=== PATIENT | female | born 1975 | race Caucasian/White ===

== ENCOUNTER 2023-06-07 12:23 | Outpatient (OUT) | payer OTHER, BC, SELFPAY ==
[2023-06-07 13:46] LABS: Free T4 0.76 ng/dL (0.76-1.46)
[2023-06-07 14:04] LABS: Free T3 2.07 pg/mL (2.18-3.98)
== END 2023-06-07 12:24 | disposition home or self-care (01) ==
PROVIDERS: PCP Family Medicine; Visit Provider Family Medicine
DX: R79.89 Other specified abnormal findings of blood chemistry (principal)
CPT/HCPCS: 36415; 84439; 84481

== ENCOUNTER 2023-08-31 07:25 | Outpatient (OUT) | payer OTHER, BC, SELFPAY ==
[2023-08-31 11:19] LABS: Free T3 1.86 pg/mL (2.18-3.98); Thyroid Stimulating Hormone 3.996 uIU/mL (0.358-3.740)
[2023-08-31 11:26] LABS: Free T4 0.84 ng/dL (0.76-1.46)
== END 2023-08-31 07:26 | disposition home or self-care (01) ==
PROVIDERS: PCP Family Medicine; Visit Provider Family Medicine
DX: R53.83 Other fatigue (principal)
CPT/HCPCS: 36415; 82728; 83540; 83550; 84439; 84443; 84481

== ENCOUNTER 2023-12-05 16:38 | Outpatient (OUT) | payer OTHER, BC, SELFPAY ==
[2023-12-05 18:06] LABS: Free T4 0.93 ng/dL (0.76-1.46)
[2023-12-05 18:11] LABS: Free T3 2.19 pg/mL (2.18-3.98); Thyroid Stimulating Hormone 5.172 uIU/mL (0.358-3.740)
== END 2023-12-05 16:39 | disposition home or self-care (01) ==
LOC: LAB 16:44
PROVIDERS: PCP Family Medicine; Visit Provider Family Medicine
DX: E03.9 Hypothyroidism, unspecified (principal)
CPT/HCPCS: 36415; 84439; 84443; 84481

== ENCOUNTER 2024-02-20 09:58 | Outpatient (OUT) | payer OTHER, BC, SELFPAY ==
--- OUTSIDE RECORDS SUMMARY | 2024-02-20 10:21 | XMS_ITS | CCD ---
Author Organization [facility] Care Team Providers Care Health And Safety Consultant Name Role Phone Rober, Gonzales Primary Care Provider Rober, Gonzales Unavailable Rober, DO Gonzales M. Primary Care Provider Rober, DO Gonzales M. Attending Provider Rober, DO Gonzales M. Primary Care Provider Rinkes, DO Naomie Attending Provider Rober, DO Gonzales M. Primary Care Provider Community, Outreach Attending Provider [phone] Community, Outreach Admitting Unavailable Community, Outreach Attending Unavailable Rober, Gonzales M. Primary Care Unavailable Rinkes, Naomie Admitting Unavailable Rinkes, Naomie Attending Unavailable Rober, Gonzales M. Primary Care Unavailable Rinkes, Naomie Admitting Unavailable Rinkes, Naomie Attending Unavailable Rober, Gonzales M. Primary Care Unavailable Community, Outreach Admitting Unavailable Community, Outreach Attending Unavailable Rober, Gonzales M. Primary Care Unavailable SELF, SELF Referring Unavailable NON-PATIENT [facility] Attending Jahaira muhammad ROBER, GONZALES Primary Care Unavailable Medications Current Medications Medication Drug Class(es) Dates Sig (Normalized) Sig (Original) Aspir-81 81 MG (12 sources) take 1 tablet by mouth once daily Aspir-81 81 MG 1 tablet Orally Once a day Active Calcium Citrate (7 sources) Citracal + D 1 t ab once daily Active Lactobacillus Combination No.4 (Probiotic) 3 billion cell Capsule (5 sources) Start: 07-02-2017 take 3 capsules by mouth once daily Lactobacillus Combination No.4 (Probiotic) 3 billion cell Capsule Active 1.5 MMU CELLS PO Daily July 02, 2017 12:00am levothyroxine sodium 0.05 mg oral tablet (5 sources) l-Thyroxine Start: 06-13-2023 take 1 tablet by mouth once daily in the morning Levothyroxine Sodium 50 MCG 1 tablet in the morning on an empty stomach Orally Once a day for 90 days Jun, Active Start: 06-13-2023 take 1 tablet by raisa th once daily in the morning Levothyroxine Sodium 50 MCG 1 tablet in the morning on an empty stomach Orally Once a day for 90 days Jun, Active Start: 06-13-2023 take 1 tablet by raisa th once daily in the morning Levothyroxine Sodium 25 MCG 1 tablet in the morning on an empty stomach Orally Once a day for 90 days Jun, Active omeprazole 40 mg delayed release oral capsule (17 sources) Proton Pump Inhibitor Start: 07-02-2017 take 40 mg by mouth once daily Omeprazole Active 40 MG PO Daily July 02, 2017 12:00am take 1 capsule by mouth once yong ly PriLOSEC 40 mg 1 capsule Orally once daily for 90 days Active ondansetron 4 mg oral tablet (5 sources) Serotonin-3 Receptor Antagonist Start: 07-03-2017 take 1 tablet by mouth every eight hours Ondansetron Hcl (Zofran) 4 mg tablet Active 4 MG PO Q8H July 03, 2017 11:06am PARoxetine hydrochloride 20 mg oral tablet (5 sources) Serotonin Reuptake Inhibitor Start: 07-02-2017 take 20 mg by mouth once daily Paroxetine Hcl Active 20 MG PO Daily July 02, 2017 12:00am phentermine hydrochloride 37.5 mg oral tablet (5 sources) Sympathomimetic Amine Anorectic take 1 tablet by mouth once daily before breakfast Adipex-P 37.5 MG 1 tablet before breakfast Orally Once a day Active Probiotic (12 sources) Probiotic Daily Active Completed/Discontinued Medications Medication Drug Class(es) Dates Sig (Normalized) Sig (Original) losartan potassium 25 mg oral tablet (20 sources) Angiotensin 2 Receptor Sreedhar Start: 07-02-2017 End: 07-02-2017 take 90 mg by mouth once daily Losartan Discontinued 90 MG PO Daily July 02, 2017 12:00am July 02, 2017 10:12am Start: 08-30-2015 take 1 tablet by raisa th every twenty-four hours Losartan Potassium 50 MG 1 tablet Orally Once a day for 90 day(s) Aug, Active SUMAtriptan 50 mg oral tablet (12 sources) Serotonin-1b and Serotonin-1d Receptor Agonist Start: 12-01-2011 SUMAtriptan Succinat e 50 MG 1 tablet Orally take at the onset of FONSECA - february repeat in 30 minutes if no improvement for 30 days PRN Nov, Not-Taking/PRN Problems Problem Classification Problem Date Documented Da te Episodic/Chronic Abdominal pain (12 sources) Epigastric pain; Translations: [Epigastric pain] Episodic Administrative/social admission (5 sources) Patient encounter status; Translations: [Other specified counseling] 07-02-2017 Episodic Conditions associated with dizziness or vertigo (5 sources) Vertigo; Translations: [Dizziness and giddiness] 07-02-2017 Episodic Deficiency and other anemia (5 sources) Microcytic anemia; Translations: [Iron deficiency anemia, unspecified] Episodic Deficiency and other anemia (1 source) Iron deficiency anemia, unspecified Episodic Diabetes mellitus without complication (13 sources) Impaired fasting glycemia; Translations: [Impaired fasting glucose] Onset: 2 Resolved: 2 Episodic Disorders of lipid metabolism (5 sources) Hyperlipidemia; Translations: [Hyperlipidemia, unspecified] 07-02-2017 Chronic Esophageal disorders (20 sources) Gastroesophageal reflux disease; Translations: [Gastro-esophageal reflux disease without esophagitis] 07-02-2017 Chronic Essential hypertension (17 sources) Essential hypertension; Translations: [Essential (primary) hypertension] 07-02-2017 Chronic Fluid and electrolyte disorders (5 sources) Hyponatremia; Translations: [Hypo-osmolality and hyponatremia] 07-02-2017 Episodic Genitourinary symptoms and ill-defined conditions (1 source) Unspecified urinary incontinence; Translations: [Unspecified urinary incontinence] Onset: 3 Chronic Headache; including migraine (12 sources) Migraine with aura; Translations: [Migraine with aura, not intractable, without status migrainosus] Chronic Malaise and fatigue (1 source) Other fatigue Episodic Mood disorders (5 sources) Depressive disorder; Translations: [Depression] 07-02-2017 Chronic Nutritional deficiencies (12 sources) Vitamin D deficiency; Translations: [Vitamin D deficiency, unspecified] Chronic Other connective tissue disease (5 sources) Neurological deficit; Translations: [Other symptoms and signs involving the nervous system] 07-02-2017 Episodic Other gastrointestinal disorders (12 sources) Constipation alternates with diarrhea; Translations: [Other specified symptoms and signs involving the digestive system and abdomen] Episodic Other gastrointestinal disorders (12 sources) Diarrhea; Translations: [Diarrhea, unspecified] Episodic Other nutritional; endocrine; and metabolic disorders (12 sources) Body mass index 40+ - severely obese; Translations: [Body mass index (BMI) 40.0-44.9, adult] Chronic Other screening for suspected conditions (not mental disorders or infectious disease) (2 sources) Encounter for screening for malignant neoplasm of colon; Translations: [Other specified abnormal findings of blood chemistry] Onset: 2 Resolved: 2 Episodic Other upper respiratory disease (12 sources) Breath smells unpleasant; Translations: [Halitosis] Episodic Other upper respiratory infections (12 sources) Inflammatory disorder of upper respiratory tract; Translations: [Chronic sinusitis, unspecified] Chronic Thyroid disorders (7 sources) Acquired hypothyroidism; Translations: [Hypothyroidism, unspecified] Chronic Unclassified (1 source) Patient encounter status; Translations: [Encounter for screening mammogram for breast cancer] Unclassified (1 source) Encounter for screening mammogram for malignant neoplasm of breast; Translations: [Encounter for screening mammogram for malignant neoplasm of breast] Onset: 3 Results Test Name Value Interpretation Reference Range Facility 25 0H VITAMIN D LEVELon 01-06 25 0H VITAMIN D LEVEL 78.3 NG/ML Normal [facility] Comment on above: Result Comment: DEFICIENT <20 NG/ML INSUFFICIENT 20-<30 NG/ML SUFFICIENT 30-100 NG/ML POTENTIAL TOXICITY >100 NG/ML Testing performed at [place] [address] Performed By: #### V ITD #### [place] [address] CBCon 01-18-2024 ABSOLUTE BAS 0.2 10*3/uL Normal 0.0-0.2 [facility] Comment on above: Result Comment: Test ing performed at [place] [address] Performed By: #### A CBC, HFC #### Testing performed at [address] [place] [address] ABSOLUTE EOS 0.3 10*3/uL Normal 0.0-0.7 [facility] Comment on above: Performed By: #### A CBC, HFC #### Testing performed at [address] [address] ABSOLUTE NEUTROPHIL COUNT 3.5 10*3/uL Normal 1.4-6.5 [facility] Comment on above: Performed By: #### A CBC, HFC #### Testing performed at [address] [address] Basophils/100 WBC (Bld) 2.7 % High 0.0-2.0 [facility] Comment on above: Performed By: #### A CBC, HFC #### Testing performed at [address] [address] DTYPE AUTO DIFF Normal [facility] Comment on above: Performed By: #### A CBC, HFC #### Testing performed at [address] [address] Eosinophils/100 WBC (Bld) 3.6 % Normal 0.0-11.0 [facility] Comment on above: Performed By: #### A CBC, HFC #### Testing performed at [address] [address] Lymphocytes (Bld) [#/Vol] 2.5 10*3/uL Normal 1.2-3.4 [facility] Comment on above: Performed By: #### A CBC, HFC #### Testing performed at [address] [address] Lymphocytes/100 WBC (Bld) 35.9 % Normal 20.0-55.0 [facility] Comment on above: Performed By: #### A CBC, HFC #### Testing performed at [address] [address] Monocytes (Bld) [#/Vol] 0.5 10*3/uL Normal 0.0-0.7 [facility] Comment on above: Performed By: #### A CBC, HFC #### Testing performed at [address] [address] Monocytes/100 WBC (Bld) 7.1 % Normal 0.0-10.0 [facility] Comment on above: Performed By: #### A CBC, HFC #### Testing performed at [address] [address] Neutrophils/100 WBC (Bld) 50.7 % Normal 37.0-75.0 [facility] Comment on above: Performed By: #### A CBC, HFC #### Testing performed at [address] [address] Erythrocyte distribution width (RBC) [Ratio] 18.8 % High 11.5-14.5 [facility] Comment on above: Performed By: #### A CBC, HFC #### Testing performed at [address] [address] Hematocrit (Bld) [Volume fraction] 33.9 % Low 36.0-48.0 [facility] Comment on above: Performed By: #### A CBC, HFC #### Testing performed at [address] [address] Hemoglobin (Bld) [Mass/Vol] 10.8 g/dL Low 12.0-16.0 [facility] Comment on above: Performed By: #### A CBC, HFC #### Testing performed at [address] [address] MCH (RBC) [Entitic mass] 23.2 pg Low 26.0-35.0 [facility] Comment on above: Performed By: #### A CBC, HFC #### Testing performed at [address] [address] MCHC (RBC) [Mass/Vol] 31.9 g/dL Normal 27.0-37.[address] [facility] Comment on above: Performed By: #### A CBC, HFC #### Testing performed at [address] [address] MCV (RBC) [Entitic vol] 72.5 fL Low 80.0-100.0 [facility] Comment on above: Performed By: #### A CBC, HFC #### Testing performed at [address] [address] Platelet mean volume (Bld) [Entitic vol] 6.3 fL Low 7.4-11.0 [facility] Comment on above: Performed By: #### A CBC, HFC #### Testing performed at [address] [address] Platelets (Bld) [#/Vol] 478 10*3/uL High 130-400 [facility] Comment on above: Performed By: #### A CBC, HFC #### Testing performed at [address] [address] RBC (Bld) [#/Vol] 4.67 10*6/uL Normal 4.0-5.4 [facility] Comment on above: Performed By: #### A CBC, HFC #### Testing performed at [address] [address] WBC (Bld) [#/Vol] 6.9 10*3/uL Normal 3.6-11.0 [facility] Comment on above: Performed By: #### A CBC, HFC #### Testing performed at [address] [address] [facility] [Catalytic activity/Vol] 15 U/L Normal <35 [facility] Comment on above: Performed By: #### A CBC, HFC #### Testing performed at [address] [address] Calcium [Mass/Vol] 9.3 mg/dL Normal 8.4-10.2 [facility] Comment on above: Performed By: #### A CBC, HFC #### Testing performed at [address] [address] Cholesterol [Mass/Vol] 115 mg/dL Normal 107-217 [facility] Comment on above: Performed By: #### A CBC, HFC #### Testing performed at [address] [place] [address] Cholesterol in HDL [Mass/Vol] 51 mg/dL Normal 33-75 [facility] Comment on above: Performed By: #### A CBC, HFC #### Testing performed at [address] [address] Cholesterol in LDL [Mass/Vol] 51 mg/dL Normal <100 [facility] Comment on above: Performed By: #### A CBC, HFC #### Testing performed at [place] [id number] Cholesterol in VLDL [Mass/Vol] 13 mg/dL Normal 5.0-25 [facility] Comment on above: Performed By: #### A CBC, HFC #### Testing performed at [place] [id number] Cholesterol.total/Choles terol in HDL [Mass ratio] 2.25 {ratio} Normal [facility] Comment on above: Result Comment: RISK TOTAL/HDL RATIO MEN WOMEN 1/2 AVERAGE 3.43 3.27 AVERAGE 4.97 4.44 2X AVERAGE 9.55 7.05 3X AVERAGE 23.99 11.04 Testing performed at [place] [address] Performed By: #### A CBC, HFC #### Testing performed at [place] [id number] Creatinine [Mass/Vol] 0.80 mg/dL Normal 0.7-1.[address] [facility] Comment on above: Performed By: #### A CBC, HFC #### Testing performed at [address] [address] EST. GFR, 98 ml/min/1.73sq.m [facility] Comment on above: Performed By: #### A CBC, HFC #### Testing performed at [address] [address] EST. GFR,Non 81 ml/min/1.73sq.m [facility] Comment on above: Performed By: #### A CBC, HFC #### Testing performed at [address] [address] Gamma glutamyl transferase [Catalytic activity/Vol] 15 U/L Normal 12-43 [facility] Comment on above: Performed By: #### A CBC, HFC #### Testing performed at [address] [address] GFR Information Average GFR for 40-4 9 years old = 99. Normal [facility] Comment on above: Result Comment: [employer] giovanni Kidney disease, GFR = <60. Kidney failure, GFR = <15. The GFR estimate is not adjusted for extreme body surface area or acute process, nor has it been validated for women or ethnic groups other than and . Performed By: #### A CBC, HFC #### Testing performed at [place] [id number] Glucose [Mass/Vol] 85 mg/dL Normal 70-100 [facility] Comment on above: Result Comment: NORMAL <100 mg/dL PREDIABETES 101-126 mg/dL DIABETES 126 mg/dL or higher Performed By: #### A CBC, HFC #### Testing performed at [place] [id number] Potassium [Moles/Vol] 4.2 mmol/L Normal 3.5-5.[address] [facility] Comment on above: Performed By: #### A CBC, HFC #### Testing performed at [place] [id number] Sodium [Moles/Vol] 135 mmol/L Low 137-145 [facility] Comment on above: Performed By: #### A CBC, HFC #### Testing performed at [place] [id number] Triglyceride [Mass/Vol] 63 mg/dL Normal 0-150 [facility] Comment on above: Performed By: #### A CBC, HFC #### Testing performed at [place] [id number] Urea nitrogen [Mass/Vol] 21 mg/dL High 7-20 [facility] Comment on above: Performed By: #### A CBC, HFC #### Testing performed at [place] [id number] HEMOGLOBIN A1Con 01-18-2024 Glucose [Mass/Vol] 105 mg/dL Normal [facility] Comment on above: Result Comment: Test ing performed at [place] [address] Performed By: #### H A1CT #### [place] [address] HbA1c (Bld) [Mass fraction] 5.3 % Normal 0-6 [facility] Comment on above: Result Comment: NORMAL <5.7% PREDIABETES 5.7-6.4% DIABETES 6.5% OR HIGHER Performed By: #### H A1CT #### [place] [address] Alanine aminotransferase [En zymatic activity/volume] in Serum or PlasmaOrdered By: OUTREACH COMMUNITY on 08-11-2023 ALT [Catalytic activity/Vol] 10 U/L Normal 7-52 [facility] Comment on above: Performed By: #### O UTREACH LIPID, OUTREACH CMP, OUTREACH VITD, CBCNOOUTREACH #### [facility] [address] [place] [id number] [place] Albumin [Mass/volume] in Ser um or Plasma by Bromocresol green (BCG) dye binding methoOrdered By: OUTREACH COMMUNITY on 08-11-2023 Albumin BCG dye [Mass/Vol] 3.9 g/dL 3.5-5.7 [facility] Alkaline phosphatase [Enzyma tic activity/volume] in Serum or PlasmaOrdered By: OUTREACH COMMUNITY on 08-11-2023 ALP [Catalytic activity/Vol] 45 U/L Normal 34-104 [facility] Comment on above: Performed By: #### O UTREACH LIPID, OUTREACH CMP, OUTREACH VITD, CBCNOOUTREACH #### [facility] [address] [place] [id number] [place] Aspartate aminotransferase [ Enzymatic activity/volume] in Serum or PlasmaOrdered By: OUTREACH COMMUNITY on 08-11-2023 AST [Catalytic activity/Vol] 13 U/L Normal 13-39 [facility] Comment on above: Performed By: #### O UTREACH LIPID, OUTREACH CMP, OUTREACH VITD, CBCNOOUTREACH #### [facility] [address] Bilirubin.total [Mass/volume ] in Serum or PlasmaOrdered By: OUTREACH COMMUNITY on 08-11-2023 Bilirubin [Mass/Vol] 0.3 mg/dL Normal 0.3-1.0 [facility] Comment on above: Performed By: #### O UTREACH LIPID, OUTREACH CMP, OUTREACH VITD, CBCNOOUTREACH #### [facility] [address] [place] [address] CBC Without Differentialon 1 10-11-2022 Mean Corpuscular HGB Conc 31.5 g/dL Low 32.0-35.0 [facility] Comment on above: Performed By: #### O UTREACH LIPID, OUTREACH CMP, OUTREACH VITD, CBCNOOUTREACH #### [address] WBC (Bld) [#/Vol] 5.9 10*3/uL Normal 3.8-11.6 [facility] Comment on above: Performed By: #### O UTREACH LIPID, OUTREACH CMP, OUTREACH VITD, CBCNOOUTREACH #### [facility] [address] [place] [address] CMP Outreachon 08-11-2023 Albumin [Mass/Vol] 3.9 g/dL Normal 3.5-5.7 [facility] Comment on above: Performed By: #### O UTREACH LIPID, OUTREACH CMP, OUTREACH VITD, CBCNOOUTREACH #### [facility] [address] [place] [address] GFR/1.73 sq M.predicted MDRD (S/P/Bld) [Vol rate/Area] mL/min/{1.73_m2} Normal [facility] Comment on above: Performed By: #### O UTREACH LIPID, OUTREACH CMP, OUTREACH VITD, CBCNOOUTREACH #### [facility] [address] [place] [address] Calcium [Mass/volume] in Ser um or PlasmaOrdered By: OUTREACH COMMUNITY on 08-11-2023 Calcium [Mass/Vol] 8.8 mg/dL Normal 8.6-10.3 [facility] Comment on above: Performed By: #### O UTREACH LIPID, OUTREACH CMP, OUTREACH VITD, CBCNOOUTREACH #### [facility] [address] [place] [id number] [place] Carbon dioxide, total [Moles /volume] in Serum or PlasmaOrdered By: OUTREACH COMMUNITY on 08-11-2023 CO2 [Moles/Vol] 26.8 mmol/L Normal 21.0-31.0 [facility] Comment on above: Performed By: #### O UTREACH LIPID, OUTREACH CMP, OUTREACH VITD, CBCNOOUTREACH #### [facility] [address] [place] [address] [place] Chloride [Moles/volume] in S pablo or PlasmaOrdered By: OUTREACH COMMUNITY on 08-11-2023 Chloride [Moles/Vol] 106 mmol/L Normal 98-107 [facility] Comment on above: Performed By: #### O UTREACH LIPID, OUTREACH CMP, OUTREACH VITD, CBCNOOUTREACH #### [facility] [address] [place] [address] [place] Cholesterol [Mass/volume] in Serum or PlasmaOrdered By: OUTREACH COMMUNITY on 08-11-2023 Cholesterol [Mass/Vol] 121 mg/dL Low 140-200 [facility] Comment on above: Chol less than 200 m g/dl low riskChol 201-239 mg/dl borderline riskChol 240 mg/dl and greater high risk Result Comment: Chol less than 200 mg/dl low risk Chol 201-239 mg/dl borderline risk Chol 240 mg/dl and greater high risk Performed By: #### O UTREACH LIPID, OUTREACH CMP, OUTREACH VITD, CBCNOOUTREACH #### [facility] [address] [place] [id number] [place] Cholesterol in LDL Calc [Mas s/Vol]Ordered By: OUTREACH COMMUNITY on 08-11-2023 Cholesterol in LDL [Mass/Vol] 59 mg/dL 0-100 [facility] Comment on above: LDL ATP III CLASSIFI CATIONLDL less than 100 mg/dL OptimalLDL 100-129 mg/dL Near or above optimalLDL 130-159 mg/dL Borderline highLDL 160-189 mg/dL HighLDL greater than 189 mg/dL Very high Cholesterol in VLDL Calc [Ma ss/Vol]Ordered By: [facility] on 08-11-2023 Cholesterol in VLDL [Mass/Vol] 13 mg/dL [facility] Creatinine [Mass/volume] in Serum or PlasmaOrdered By: [facility] on 08-11-2023 Creatinine [Mass/Vol] 0.82 mg/dL Normal 0.60-1.20 [facility] Comment on above: Performed By: #### O UTREACH LIPID, OUTREACH CMP, OUTREACH VITD, CBCNOOUTREACH #### [facility] [address] [place] [address] [place] Erythrocyte distribution wid th [Ratio] by Automated countOrdered By: [facility] on 08-11-2023 Erythrocyte distribution width (RBC) [Ratio] 22.3 % High 11.9-15.3 [facility] Comment on above: Performed By: #### O UTREACH LIPID, OUTREACH CMP, OUTREACH VITD, CBCNOOUTREACH #### [facility] [address] [place] [id number] [place] Erythrocytes [#/volume] in B lood by Automated countOrdered By: [facility] on 08-11-2023 RBC (Bld) [#/Vol] 4.40 10*6/uL Normal 3.60-5.00 [facility] Comment on above: Performed By: #### O UTREACH LIPID, OUTREACH CMP, OUTREACH VITD, CBCNOOUTREACH #### [facility] [address] [place], [place] [id number] [place] Glucose [Mass/volume] in Ser um or PlasmaOrdered By: [facility] on 08-11-2023 Glucose [Mass/Vol] 104 mg/dL High 70-100 [facility] Comment on above: ADA recommended refe rence rangeRandom Glucose Reference Range is dependent on time and content of last meal. Glucose of more than 200 mg/dL in a nonstressed, ambulatory subject supports the diagnosis of Diabetes Mellitus. Result Comment: [place] om Glucose Reference Range is dependent on time and content of last meal. Glucose of more than 200 mg/dL in a nonstressed, ambulatory subject supports the diagnosis of Diabetes Mellitus. ADA recommended reference range Performed By: #### O UTREACH LIPID, OUTREACH CMP, OUTREACH VITD, CBCNOOUTREACH #### [facility] [address] Hematocrit [Volume Fraction] of Blood by Automated countOrdered By: [facility] on 08-11-2023 Hematocrit (Bld) [Volume fraction] 33.0 % Low 34.0-46.4 [facility] Comment on above: Performed By: #### O UTREACH LIPID, OUTREACH CMP, OUTREACH VITD, CBCNOOUTREACH #### [facility] [address] Hemoglobin [Mass/volume] in BloodOrdered By: [facility] on 08-11-2023 Hemoglobin (Bld) [Mass/Vol] 10.4 g/dL Low 11.8-15.4 [facility] Comment on above: Performed By: #### O UTREACH LIPID, OUTREACH CMP, OUTREACH VITD, CBCNOOUTREACH #### [address] Leukocytes [#/volume] correc freddie for nucleated erythrocytes in Blood by Automated counOrdered By: [facility] on 08-11-2023 WBC corrected for nucl RBC Auto (Bld) [#/Vol] 5.9 10*3/uL 3.8-11.6 [facility] Lipid Profile Outreachon LDL Cholesterol,Calculated 59 mg/dL Normal 0-100 [facility] Comment on above: Result Comment: LDL ATP III CLASSIFICATION LDL less than 100 mg/dL Optimal LDL 100-129 mg/dL Near or above optimal LDL 130-159 mg/dL Borderline high LDL 160-189 mg/dL High LDL greater than 189 mg/dL Very high Performed By: #### O UTREACH LIPID, OUTREACH CMP, OUTREACH VITD, CBCNOOUTREACH #### [address] Triglyceride w/Reflex 66 mg/dL Normal 0-149 [facility] Comment on above: Result Comment: TRIG ATP III CLASSIFICATION TRIG less than 150 mg/dL Normal TRIG 150-199 mg/dL Borderline high TRIG 200-500 mg/dL High TRIG greater than 500 mg/dL Very high Standard traceable to the Center for Disease Conrtrol and Prevention (CDC) test method. Performed By: #### O UTREACH LIPID, OUTREACH CMP, OUTREACH VITD, CBCNOOUTREACH #### [facility] [address] VLDL CHOLESTEROL 13 mg/dL Normal [facility] Comment on above: Performed By: #### O UTREACH LIPID, OUTREACH CMP, OUTREACH VITD, CBCNOOUTREACH #### [facility] [address] MCH [Entitic mass] by Automa freddie countOrdered By: OUTREACH COMMUNITY on 08-11-2023 MCH (RBC) [Entitic mass] 23.6 pg Low 24.7-34.3 [facility] Comment on above: Performed By: #### O UTREACH LIPID, OUTREACH CMP, OUTREACH VITD, CBCNOOUTREACH #### [facility] [address] [place] [address] MCHC Auto (RBC) [Mass/Vol]Or dered By: OUTREACH COMMUNITY on 08-11-2023 MCHC (RBC) [Mass/Vol] 31.5 g/dL 32.0-35.0 [facility] MCV [Entitic volume] by Auto mated countOrdered By: OUTREACH COMMUNITY on 08-11-2023 MCV (RBC) [Entitic vol] 75.0 fL Low 80-100 [facility] Comment on above: Performed By: #### O UTREACH LIPID, OUTREACH CMP, OUTREACH VITD, CBCNOOUTREACH #### [facility] [address] [place] [address] No Panel InformationOrdered By: OUTREACH COMMUNITY on 08-11-2023 Estimated GFR (CKD-EPI) > 60.0 mL/Min [facility] Creatinine Clearance (Chem N/A [facility] Outreach VitD 25on 3 Outreach VitD 25 41.7 ng/mL Normal 30-100 [facility] Comment on above: Result Comment: MEMO MIN D STATUS 25(OH)VITAMIN D RANGE (ng/mL) Deficient <20 Insufficient 20 to <30 Sufficient 30 to 100 Reference: Neyda MF,Angela NC, Ravin FONSECA, et al. Evaluation,treatment, and prevention of vitamin D deficiency; an Endocrine Society clinical practice guideline. JCEM. 2010; 96(7):1911-30. PERFORMED BY: [place] [address] PATHOLOGIST ELECTRICAL SYSTEMS DESIGNER DAJA ALVAREZ M.D. Performed By: #### O UTREACH LIPID, OUTREACH CMP, OUTREACH VITD, CBCNOOUTREACH #### [address] [address] [place] Platelet mean volume [Entiti c volume] in Blood by Automated countOrdered By: [facility] on 08-11-2023 Platelet mean volume (Bld) [Entitic vol] 6.7 fL Normal 6.3-10.7 [facility] Comment on above: Result Comment: PERF ORMED BY: [place] [address] PATHOLOGIST ELECT[employer] DESIGNER DAJA ALVAREZ M.D. Performed By: #### O UTREACH LIPID, OUTREACH CMP, OUTREACH VITD, CBCNOOUTREACH #### [facility] [address] [place] [address] [place] Platelets [#/volume] in Bloo d by Automated countOrdered By: [facility] on 08-11-2023 Platelets (Bld) [#/Vol] 501 10*3/uL High 150-450 [facility] Comment on above: Performed By: #### O UTREACH LIPID, OUTREACH CMP, OUTREACH VITD, CBCNOOUTREACH #### [facility] [address] [place] [address] [place] Potassium [Moles/volume] in Serum or PlasmaOrdered By: [facility] on 08-11-2023 Potassium [Moles/Vol] 4.5 mmol/L Normal 3.5-5.1 [facility] Comment on above: Performed By: #### O UTREACH LIPID, OUTREACH CMP, OUTREACH VITD, CBCNOOUTREACH #### [facility] [address] [place] [address] [place] Protein [Mass/volume] in Ser um or PlasmaOrdered By: OUTREACH COMMUNITY on 08-11-2023 Protein [Mass/Vol] 6.4 g/dL Normal 6.4-8.9 [facility] Comment on above: Performed By: #### O UTREACH LIPID, OUTREACH CMP, OUTREACH VITD, CBCNOOUTREACH #### [facility] [address] Serum or plasma anion gap de terminationOrdered By: OUTREACH COMMUNITY on 08-11-2023 Anion gap [Moles/Vol] 7.7 mmol/L Normal 6.0-15.0 [facility] Comment on above: Performed By: #### O UTREACH LIPID, OUTREACH CMP, OUTREACH VITD, CBCNOOUTREACH #### [facility] [address] Serum or plasma high density lipoprotein (HDL) cholesterol measurementOrdered By: OUTREACH COMMUNITY on 08-11-2023 Cholesterol in HDL [Mass/Vol] 49 mg/dL Normal 23-92 [facility] Comment on above: HDL CHOL ATP-III CLA SSIFICATION Cardiovascular RiskHDL > or equal to 60 mg/dL LOWHDL < 40 mg/dL HIGH Result Comment: HDL CHOL ATP-III CLASSIFICATION Cardiovascular Risk HDL > or equal to 60 mg/dL LOW HDL < 40 mg/dL HIGH Performed By: #### O UTREACH LIPID, OUTREACH CMP, OUTREACH VITD, CBCNOOUTREACH #### [facility] [address] Serum or plasma total choles terol/high density lipoprotein (HDL) cholesterol mass ratOrdered By: OUTREACH COMMUNITY on 08-11-2023 Cholesterol.total/Choles terol in HDL [Mass ratio] 2.5 {ratio} Normal <5.0 [facility] Comment on above: Performed By: #### O UTREACH LIPID, OUTREACH CMP, OUTREACH VITD, CBCNOOUTREACH #### [facility] [address] [place] [address] [place] Sodium [Moles/volume] in Ser um or PlasmaOrdered By: OUTREACH COMMUNITY on 08-11-2023 Sodium [Moles/Vol] 136 mmol/L Normal 136-145 [facility] Comment on above: Performed By: #### O UTREACH LIPID, OUTREACH CMP, OUTREACH VITD, CBCNOOUTREACH #### [facility] [address] [place] [phone] [facility] Triglyceride [Mass/volume] i n Serum or PlasmaOrdered By: OUTREACH COMMUNITY on 08-11-2023 Triglyceride [Mass/Vol] 66 mg/dL 0-149 [facility] Comment on above: TRIG ATP III CLASSIF ICATIONTRIG less than 150 mg/dL NormalTRIG 150-199 mg/dL Borderline highTRIG 200-500 mg/dL High TRIG greater than 500 mg/dL Very highStandard traceable to the Center for Disease Conrtrol and Prevention (CDC) test method. Urea nitrogen [Mass/volume] in Serum or PlasmaOrdered By: OUTREACH COMMUNITY on 08-11-2023 Urea nitrogen [Mass/Vol] 21 mg/dL Normal 05-01 [facility] Comment on above: Performed By: #### O UTREA LIPID, OUTREACH CMP, OUTREACH VITD, CBCNOOUTREACH #### [facility] [address] [place] [phone] [facility] Vitamin D+Metabolites [Mass/ volume] in Serum or PlasmaOrdered By: OUTREACH COMMUNITY on 08-11-2023 Vitamin D+Metabolites [Mass/Vol] 41.7 ng/mL 30-100 [facility] Comment on above: VITAMIN D STATUS 25( OH)VITAMIN D RANGE (ng/mL) Deficient <20 Insufficient 20 to <30Sufficient 30 to 100Reference: Neyda MF,Angela LIAO, Ravin FONSECA, et al. Evaluation,treatment, and prevention of vitamin D deficiency; an Endocrine Society clinical practice guideline. JCEM. 2010; 96(7):1911-30. Alanine aminotransferase [En zymatic activity/volume] in Serum or PlasmaOrdered By: OUTREACH COMMUNITY on 05-26-2023 ALT [Catalytic activity/Vol] 9 U/L [facility] Albumin [Mass/volume] in Ser um or Plasma by Bromocresol green (BCG) dye binding methoOrdered By: OUTREACH COMMUNITY on 05-26-2023 Albumin BCG dye [Mass/Vol] 4.2 g/dL 3.5-5.7 [facility] Alkaline phosphatase [Enzyma tic activity/volume] in Serum or PlasmaOrdered By: OUTREACH COMMUNITY on 05-26-2023 ALP [Catalytic activity/Vol] 55 U/L 34-104 [facility] Aspartate aminotransferase [ Enzymatic activity/volume] in Serum or PlasmaOrdered By: OUTREACH COMMUNITY on 05-26-2023 AST [Catalytic activity/Vol] 13 U/L 13-39 [facility] Bilirubin.total [Mass/volume ] in Serum or PlasmaOrdered By: OUTREACH COMMUNITY on 05-26-2023 Bilirubin [Mass/Vol] 0.5 mg/dL 0.3-1.0 [facility] CBC Without Differentialon 0 05-26-2023 Erythrocyte distribution width (RBC) [Ratio] 18.5 % High 11.9-15.3 [facility] Comment on above: Performed By: #### O UTREACH CMP, OUTREACH VITD, OUTREACH TSH, CBCNOOUTREACH, OUTREACH LIPID, OUTREACH GLYCO #### [facility] [address] [place] [address] [place] Hematocrit (Bld) [Volume fraction] 32.7 % Low 34.0-46.4 [facility] Comment on above: Performed By: #### O UTREACH CMP, OUTREACH VITD, OUTREACH TSH, CBCNOOUTREACH, OUTREACH LIPID, OUTREACH GLYCO #### [facility] [address] [place] [address] [place] Hemoglobin (Bld) [Mass/Vol] 10.2 g/dL Low 11.8-15.4 [facility] Comment on above: Performed By: #### O UTREACH CMP, OUTREACH VITD, OUTREACH TSH, CBCNOOUTREACH, OUTREACH LIPID, OUTREACH GLYCO #### [facility] [address] [place] [address] [place] MCH (RBC) [Entitic mass] 22.0 pg Low 24.7-34.3 [facility] Comment on above: Performed By: #### O UTREACH CMP, OUTREACH VITD, OUTREACH TSH, CBCNOOUTREACH, OUTREACH LIPID, OUTREACH GLYCO #### [facility] [address] [place] [address] [place] MCV (RBC) [Entitic vol] 70.9 fL Low 80-100 [facility] Comment on above: Performed By: #### O UTREACH CMP, OUTREACH VITD, OUTREACH TSH, CBCNOOUTREACH, OUTREACH LIPID, OUTREACH GLYCO #### [facility] [address] Mean Corpuscular HGB Conc 31.1 g/dL Low 32.0-35.0 [facility] Comment on above: Performed By: #### O UTREACH CMP, OUTREACH VITD, OUTREACH TSH, CBCNOOUTREACH, OUTREACH LIPID, OUTREACH GLYCO #### [facility] [address] Platelet mean volume (Bld) [Entitic vol] 6.7 fL Normal 6.3-10.7 [facility] Comment on above: Result Comment: PERF ORMED BY: [place] [address] PATHOLOGIST ELECT[employer] DESIGNER DAJA ALVAREZ M.D. Performed By: #### O UTREACH CMP, OUTREACH VITD, OUTREACH TSH, CBCNOOUTREACH, OUTREACH LIPID, OUTREACH GLYCO #### [facility] [address] [place] [address] [place] Platelets (Bld) [#/Vol] 503 10*3/uL High 150-450 [facility] Comment on above: Performed By: #### O UTREACH CMP, OUTREACH VITD, OUTREACH TSH, CBCNOOUTREACH, OUTREACH LIPID, OUTREACH GLYCO #### [facility] [address] [place] [address] [place] RBC (Bld) [#/Vol] 4.61 10*6/uL Normal 3.60-5.00 [facility] Comment on above: Performed By: #### O UTREACH CMP, OUTREACH VITD, OUTREACH TSH, CBCNOOUTREACH, OUTREACH LIPID, OUTREACH GLYCO #### [facility] [address] [place] [address] [place] WBC (Bld) [#/Vol] 5.9 10*3/uL Normal 3.8-11.6 [facility] Comment on above: Performed By: #### O UTREACH CMP, OUTREACH VITD, OUTREACH TSH, CBCNOOUTREACH, OUTREACH LIPID, OUTREACH GLYCO #### [facility] [address] [place] [address] [place] CMP Outreachon 05-26-2023 Albumin [Mass/Vol] 4.2 g/dL Normal 3.5-5.7 [facility] Comment on above: Performed By: #### O UTREACH CMP, OUTREACH VITD, OUTREACH TSH, CBCNOOUTREACH, OUTREACH LIPID, OUTREACH GLYCO #### [facility] [address] [place] [address] ALP [Catalytic activity/Vol] 55 U/L Normal 34-104 [facility] Comment on above: Performed By: #### O UTREACH CMP, OUTREACH VITD, OUTREACH TSH, CBCNOOUTREACH, OUTREACH LIPID, OUTREACH GLYCO #### [facility] [address] [place] [address] ALT [Catalytic activity/Vol] 9 U/L Normal 7-52 [facility] Comment on above: Performed By: #### O UTREACH CMP, OUTREACH VITD, OUTREACH TSH, CBCNOOUTREACH, OUTREACH LIPID, OUTREACH GLYCO #### [facility] [address] [place] [address] Anion gap [Moles/Vol] 11.4 mmol/L Normal 6.0-15.0 [facility] Comment on above: Performed By: #### O UTREACH CMP, OUTREACH VITD, OUTREACH TSH, CBCNOOUTREACH, OUTREACH LIPID, OUTREACH GLYCO #### [facility] [address] [place], [place] [id number] [place] AST [Catalytic activity/Vol] 13 U/L Normal 13-39 [facility] Comment on above: Performed By: #### O UTREACH CMP, OUTREACH VITD, OUTREACH TSH, CBCNOOUTREACH, OUTREACH LIPID, OUTREACH GLYCO #### [facility] [address] [place] [address] Bilirubin [Mass/Vol] 0.5 mg/dL Normal 0.3-1.0 [facility] Comment on above: Performed By: #### O UTREACH CMP, OUTREACH VITD, OUTREACH TSH, CBCNOOUTREACH, OUTREACH LIPID, OUTREACH GLYCO #### [facility] [address] [place] [address] [place] Calcium [Mass/Vol] 9.5 mg/dL Normal 8.6-10.3 [facility] Comment on above: Performed By: #### O UTREACH CMP, OUTREACH VITD, OUTREACH TSH, CBCNOOUTREACH, OUTREACH LIPID, OUTREACH GLYCO #### [facility] [address] [place] [address] [place] Chloride [Moles/Vol] 103 mmol/L Normal 98-107 [facility] Comment on above: Performed By: #### O UTREACH CMP, OUTREACH VITD, OUTREACH TSH, CBCNOOUTREACH, OUTREACH LIPID, OUTREACH GLYCO #### [facility] [address] [place] [address] [place] CO2 [Moles/Vol] 27.0 mmol/L Normal 21.0-31.0 [facility] Comment on above: Performed By: #### O UTREACH CMP, OUTREACH VITD, OUTREACH TSH, CBCNOOUTREACH, OUTREACH LIPID, OUTREACH GLYCO #### [facility] [address] [place] [address] [place] Creatinine [Mass/Vol] 0.81 mg/dL Normal 0.60-1.20 [facility] Comment on above: Performed By: #### O UTREACH CMP, OUTREACH VITD, OUTREACH TSH, CBCNOOUTREACH, OUTREACH LIPID, OUTREACH GLYCO #### [facility] [address] [place] [address] [place] GFR/1.73 sq M.predicted MDRD (S/P/Bld) [Vol rate/Area] mL/min/{1.73_m2} [facility] Comment on above: Performed By: #### O UTREACH CMP, OUTREACH VITD, OUTREACH TSH, CBCNOOUTREACH, OUTREACH LIPID, OUTREACH GLYCO #### [facility] [address] [place] [phone] [place] Glucose [Mass/Vol] 95 mg/dL Normal 70-100 [facility] Comment on above: Result Comment: [place] om Glucose Reference Range is dependent on time and content of last meal. Glucose of more than 200 mg/dL in a nonstressed, ambulatory subject supports the diagnosis of Diabetes Mellitus. ADA recommended reference range Performed By: #### O UTREACH CMP, OUTREACH VITD, OUTREACH TSH, CBCNOOUTREACH, OUTREACH LIPID, OUTREACH GLYCO #### [facility] [address] [place] [address] [place] Potassium [Moles/Vol] 4.4 mmol/L Normal 3.5-5.1 [facility] Comment on above: Performed By: #### O UTREACH CMP, OUTREACH VITD, OUTREACH TSH, CBCNOOUTREACH, OUTREACH LIPID, OUTREACH GLYCO #### [facility] [address] [place] [address] [place] Protein [Mass/Vol] 7.1 g/dL Normal 6.4-8.9 [facility] Comment on above: Performed By: #### O UTREACH CMP, OUTREACH VITD, OUTREACH TSH, CBCNOOUTREACH, OUTREACH LIPID, OUTREACH GLYCO #### [facility] [address] [place] [phone] [place] Sodium [Moles/Vol] 137 mmol/L Normal 136-145 [facility] Comment on above: Performed By: #### O UTREACH CMP, OUTREACH VITD, OUTREACH TSH, CBCNOOUTREACH, OUTREACH LIPID, OUTREACH GLYCO #### [facility] [address] [place] [phone] [place] Urea nitrogen [Mass/Vol] 17 mg/dL Normal 7-25 [facility] Comment on above: Performed By: #### O UTREACH CMP, OUTREACH VITD, OUTREACH TSH, CBCNOOUTREACH, OUTREACH LIPID, OUTREACH GLYCO #### [facility] [address] [place] [phone] [place] Calcium [Mass/volume] in Ser um or PlasmaOrdered By: OUTREACH COMMUNITY on 05-26-2023 Calcium [Mass/Vol] 9.5 mg/dL 8.6-10.3 [facility] Carbon dioxide, total [Moles /volume] in Serum or PlasmaOrdered By: OUTREACH COMMUNITY on 05-26-2023 CO2 [Moles/Vol] 27.0 mmol/L 21.0-31.0 [facility] Chloride [Moles/volume] in S pablo or PlasmaOrdered By: OUTREACH [facility] on 05-26-2023 Chloride [Moles/Vol] 103 mmol/L 98-107 [facility] Cholesterol [Mass/volume] in Serum or PlasmaOrdered By: [facility] on 05-26-2023 Cholesterol [Mass/Vol] 134 mg/dL 140-200 [facility] Comment on above: Chol less than 200 m g/dl low riskChol 201-239 mg/dl borderline riskChol 240 mg/dl and greater high risk Cholesterol in LDL Calc [Mas s/Vol]Ordered By: [facility] on 05-26-2023 Cholesterol in LDL [Mass/Vol] 63 mg/dL 0-100 [facility] Comment on above: LDL ATP III CLASSIFI CATIONLDL less than 100 mg/dL OptimalLDL 100-129 mg/dL Near or above optimalLDL 130-159 mg/dL Borderline highLDL 160-189 mg/dL HighLDL greater than 189 mg/dL Very high Cholesterol in VLDL Calc [Ma ss/Vol]Ordered By: OUTREACH [facility] on 05-26-2023 Cholesterol in VLDL [Mass/Vol] 19 mg/dL [facility] Creatinine [Mass/volume] in Serum or PlasmaOrdered By: [facility] on 05-26-2023 Creatinine [Mass/Vol] 0.81 mg/dL 0.60-1.20 [facility] Erythrocyte distribution wid th Auto (RBC) [Ratio]Ordered By: [facility] on 05-26-2023 Erythrocyte distribution width (RBC) [Ratio] 18.5 % 11.9-15.3 [facility] Glucose [Mass/volume] in Ser um or PlasmaOrdered By: OUTREACH [facility] on 05-26-2023 Glucose [Mass/Vol] 95 mg/dL 70-100 [facility] Comment on above: ADA recommended refe rence rangeRandom Glucose Reference Range is dependent on time and content of last meal. Glucose of more than 200 mg/dL in a nonstressed, ambulatory subject supports the diagnosis of Diabetes Mellitus. Glucose mean value [Mass/vol ume] in Blood Estimated from glycated hemoglobinOrdered By: [facility] on 05-26-2023 Average glucose Estimated from glycated hemoglobin (Bld) [Mass/Vol] 120 mg/dL [facility] Hematocrit Auto (Bld) [Volum e fraction]Ordered By: [facility] on 05-26-2023 Hematocrit (Bld) [Volume fraction] 32.7 % 34.0-46.4 [facility] Hemoglobin [Mass/volume] in BloodOrdered By: [facility] on 05-26-2023 Hemoglobin (Bld) [Mass/Vol] 10.2 g/dL 11.8-15.4 [facility] Laboratory - Hematology and Cell countsOrdered By: [facility] on 05-26-2023 HbA1c (Bld) [Mass fraction] 5.8 % 4.3-5.6 [facility] Comment on above: Increased risk for d iabetes: 5.7 - 6.4diabetes: >6.4glycemic control for adults with diabetes: <7.0 Leukocytes [#/volume] correc freddie for nucleated erythrocytes in Blood by Automated counOrdered By: [facility] on 05-26-2023 WBC corrected for nucl RBC Auto (Bld) [#/Vol] 5.9 10*3/uL 3.8-11.6 [facility] Lipid Profile [facility] Cholesterol [Mass/Vol] 134 mg/dL Low 140-200 [facility] Comment on above: Result Comment: Chol less than 200 mg/dl low risk Chol 201-239 mg/dl borderline risk Chol 240 mg/dl and greater high risk Performed By: #### O UTREACH CMP, OUTREACH VITD, OUTREACH TSH, CBCNOOUTREACH, OUTREACH LIPID, OUTREACH GLYCO #### [facility] [address] [place] [address] [place] Cholesterol in HDL [Mass/Vol] 52 mg/dL Normal 23-92 [facility] Comment on above: Result Comment: HDL CHOL ATP-III CLASSIFICATION Cardiovascular Risk HDL > or equal to 60 mg/dL LOW HDL < 40 mg/dL HIGH Performed By: #### O UTREACH CMP, OUTREACH VITD, OUTREACH TSH, CBCNOOUTREACH, OUTREACH LIPID, OUTREACH GLYCO #### [facility] [address] [place] [phone] [facility] Cholesterol.total/Choles terol in HDL [Mass ratio] 2.6 {ratio} Normal <5.0 [facility] Comment on above: Performed By: #### O UTREACH CMP, OUTREACH VITD, OUTREACH TSH, CBCNOOUTREACH, OUTREACH LIPID, OUTREACH GLYCO #### [facility] [address] LDL Cholesterol,Calculated 63 mg/dL Normal 0-100 [facility] Comment on above: Result Comment: LDL ATP III CLASSIFICATION LDL less than 100 mg/dL Optimal LDL 100-129 mg/dL Near or above optimal LDL 130-159 mg/dL Borderline high LDL 160-189 mg/dL High LDL greater than 189 mg/dL Very high Performed By: #### O UTREACH CMP, OUTREACH VITD, OUTREACH TSH, CBCNOOUTREACH, OUTREACH LIPID, OUTREACH GLYCO #### [facility] [address] Triglyceride w/Reflex 95 mg/dL Normal 0-149 [facility] Comment on above: Result Comment: TRIG ATP III CLASSIFICATION TRIG less than 150 mg/dL Normal TRIG 150-199 mg/dL Borderline high TRIG 200-500 mg/dL High TRIG greater than 500 mg/dL Very high Standard traceable to the Center for Disease Conrtrol and Prevention (CDC) test method. Performed By: #### O UTREACH CMP, OUTREACH VITD, OUTREACH TSH, CBCNOOUTREACH, OUTREACH LIPID, OUTREACH GLYCO #### [facility] [address] VLDL CHOLESTEROL 19 mg/dL Normal [facility] Comment on above: Performed By: #### O UTREACH CMP, OUTREACH VITD, OUTREACH TSH, CBCNOOUTREACH, OUTREACH LIPID, OUTREACH GLYCO #### [facility] [address] [place] [address] MCH Auto (RBC) [Entitic mass ]Ordered By: OUTREACH COMMUNITY on 05-26-2023 MCH (RBC) [Entitic mass] 22.0 pg 24.7-34.3 [facility] MCHC Auto (RBC) [Mass/Vol]Or dered By: OUTREACH COMMUNITY on 05-26-2023 MCHC (RBC) [Mass/Vol] 31.1 g/dL 32.0-35.0 [facility] MCV Auto (RBC) [Entitic vol] Ordered By: OUTREACH COMMUNITY on 05-26-2023 MCV (RBC) [Entitic vol] 70.9 fL 80-100 [facility] No Panel InformationOrdered By: OUTREACH COMMUNITY on 05-26-2023 Estimated GFR (CKD-EPI) > 60.0 mL/Min [facility] Creatinine Clearance (Chem N/A [facility] Outreach Glycoon 05-26-2023 Glucose [Mass/Vol] 120 mg/dL Normal [facility] Comment on above: Result Comment: PERF ORMED BY: [place] [address] PATHOLOGIST ELECT[employer] DESIGNER DAJA ALVAREZ M.D. Performed By: #### O UTREACH CMP, OUTREACH VITD, OUTREACH TSH, CBCNOOUTREACH, OUTREACH LIPID, OUTREACH GLYCO #### [facility] [address] [place] [phone] [facility] HbA1c (Bld) [Mass fraction] 5.8 % High 4.3-5.6 [facility] Comment on above: Result Comment: Incr eased risk for diabetes: 5.7 - 6.4 diabetes: >6.4 glycemic control for adults with diabetes: <7.0 Performed By: #### O UTREACH CMP, OUTREACH VITD, OUTREACH TSH, CBCNOOUTREACH, OUTREACH LIPID, OUTREACH GLYCO #### [facility] [address] [place] [phone] [facility] Outreach VitD 25on 3 Outreach VitD 25 27.7 ng/mL Low 30-100 [facility] Comment on above: Result Comment: MEMO MIN D STATUS 25(OH)VITAMIN D RANGE (ng/mL) Deficient <20 Insufficient 20 to <30 Sufficient 30 to 100 Reference: Neyda MF,Angela NC, Ravin FONSECA, et al. Evaluation,treatment, and prevention of vitamin D deficiency; an Endocrine Society clinical practice guideline. JCEM. 2010; 96(7):1911-30. PERFORMED BY: [facility] [address] [place] [id number] PATHOLOGIST [employer]LECT[employer] DESIGNER DAJA ALVAREZ M.D. Performed By: #### O YOSEPH CMP, OUTREACH VITD, OUTREACH TSH, CBCNOOUTREACH, OUTREACH LIPID, OUTREACH GLYCO #### [facility] [address] Platelet mean volume Auto (B ld) [Entitic vol]Ordered By: OUTREACH COMMUNITY on 05-26-2023 Platelet mean volume (Bld) [Entitic vol] 6.7 fL 6.3-10.7 [facility] Platelets Auto (Bld) [#/Vol] Ordered By: [facility]ACH [facility] on 05-26-2023 Platelets (Bld) [#/Vol] 503 10*3/uL 150-450 [facility] Potassium [Moles/volume] in Serum or PlasmaOrdered By: [facility] on 05-26-2023 Potassium [Moles/Vol] 4.4 mmol/L 3.5-5.1 [facility] Protein [Mass/volume] in Ser um or PlasmaOrdered By: OUTREACH [facility] on 05-26-2023 Protein [Mass/Vol] 7.1 g/dL 6.4-8.9 [facility] RBC Auto (Bld) [#/Vol]Ordere d By: OUTREACH [facility] on 05-26-2023 RBC (Bld) [#/Vol] 4.61 10*6/uL 3.60-5.00 [facility] Serum or plasma anion gap de terminationOrdered By: OUTREACH [facility] on 05-26-2023 Anion gap [Moles/Vol] 11.4 mmol/L 6.0-15.0 [facility] Serum or plasma high density lipoprotein (HDL) cholesterol measurementOrdered By: OUTREACH COMM[facility] on 05-26-2023 Cholesterol in HDL [Mass/Vol] 52 mg/dL 23-92 [facility] Comment on above: HDL CHOL ATP-III CLA SSIFICATION Cardiovascular RiskHDL > or equal to 60 mg/dL LOWHDL < 40 mg/dL HIGH Serum or plasma total choles terol/high density lipoprotein (HDL) cholesterol mass ratOrdered By: [facility]ACH [facility] on 05-26-2023 Cholesterol.total/Choles terol in HDL [Mass ratio] 2.6 {ratio} <5.0 [facility] Sodium [Moles/volume] in Ser um or PlasmaOrdered By: OUTREACH [facility] on 05-26-2023 Sodium [Moles/Vol] 137 mmol/L 136-145 [facility] Thyroid Stimulating Hormoneo n 05-26-2023 TSH Qn 5.53 m[IU]/L High 0.45-5.33 [facility] Comment on above: Performed By: #### O UTREACH CMP, OUTREACH VITD, OUTREACH TSH, CBCNOOUTREACH, OUTREACH LIPID, OUTREACH GLYCO #### [facility] [address] Thyrotropin [Units/volume] i n Serum or PlasmaOrdered By: OUTREACH COMMUNITY on 05-26-2023 TSH Qn 5.53 m[IU]/L 0.45-5.33 [facility] Triglyceride [Mass/volume] i n Serum or PlasmaOrdered By: [facility] on 05-26-2023 Triglyceride [Mass/Vol] 95 mg/dL 0-149 [facility] Comment on above: TRIG ATP III CLASSIF ICATIONTRIG less than 150 mg/dL NormalTRIG 150-199 mg/dL Borderline highTRIG 200-500 mg/dL High TRIG greater than 500 mg/dL Very highStandard traceable to the Center for Disease Conrtrol and Prevention (CDC) test method. Urea nitrogen [Mass/volume] in Serum or PlasmaOrdered By: OUTREACH [facility] on 05-26-2023 Urea nitrogen [Mass/Vol] 17 mg/dL 7-25 [facility] Vitamin D+Metabolites [Mass/ volume] in Serum or PlasmaOrdered By: [facility]REACH [facility] on 05-26-2023 Vitamin D+Metabolites [Mass/Vol] 27.7 ng/mL 30-100 [facility] Comment on above: VITAMIN D STATUS 25( [place])VITAMIN D RANGE (ng/mL) Deficient <20 Insufficient 20 to <30Sufficient 30 to 100Reference: Neyda SUAZO,Angela LIAO, Ravin FONSECA, et al. Evaluation,treatment, and prevention of vitamin D deficiency; an Endocrine Society clinical practice guideline. JCEM. 2010; 96(7):1911-30. MM screening mammo BI w/CADo n 02-07-2023 MM screening mammo BI w/CAD [facility] [place] [address] [place] [address] Mammography Report Signed Patient: Terri Balbuena MR#: [id number] : 1975 Acct:[id number] Age/Sex: 47 / F ADM Date: 02/07/23 Loc: [place] Room: Type: [facility] Attending Dr: Naomie Banuelos DO Copies to: DO Gonzales Bynum DO Ordering Provider: Naomie Baneulos DO Date of Service: 02/07/23 MM/MM screening mammo BI w/CAD: screening;Breast cancer screening CLINICAL DATA: Screening for malignancy. SCREENING MAMMOGRAM - FULL FIELD DIGITAL WITH TOMOSYNTHESIS AND CAD COMPARISON:Mammograms dating back to 2018 Tomosynthesis craniocaudal and mediolateral oblique views of both breasts were obtained using low- dose digital technique. This examination was reviewed with the aid of CAD. The breast tissue is composed of scattered fibroglandular densities. There are no dominant masses, typically malignant calcifications or architectural distortion. There has been no significant interval change. MM/MM screening mammo BI w/CAD IMPRESSION: NO MAMMOGRAPHIC EVIDENCE OF MALIGNANCY. ROUTINE FOLLOW-UP IS RECOMMENDED IN ONE YEAR. RESULT CODE: 1 Negative DENSITY CODE: 2 (approximately 25-50% glandular) FOLLOW UP: 1YR The false-negative rate of mammography is approximately 10-percent. Management of a palpable abnormality must be based on clinical grounds. Patient was entered into a reminder system with a target due date for the next mammogram. Impression dictated by: Frandy Banks Jr., D.OSandro02/07/2023 10:07 AM Dictation Location: [facility] Transcribed By: [facility] 02/07/23 1007 Dictated By: Frandy Banks Jr, DO 02/07/23 1005 Signed By: 02/07/23 1007 Normal [facility] A1C HEMOGLOBINon 05-31-2022 HbA1c (Bld) [Mass fraction] 5.3 % [employer] Other HbA1c (Bld) [Mass fraction]o n 05-31-2022 A1C HEMOGLOBIN [facility] [employer] Other COVID-19 Positive/NegativeOr dered By: Gonzales Rober on 05-09-2022 SARS-CoV-2 (COVID-19) N gene ELDA+probe Ql (Resp) Negative Negative [facility] Comment on above: Testing for SARS-CoV -2 by RT-PCR This test was developed and its performance characteristics determined by [employer] ([place]) and validated at the [facility]. This test has not been FDA cleared or approved. This test has been authorized by FDA under an Emergency Use Authorization (EUA). This test has been validated in accordance with the FDA's Guidance Document (Policy for Diagnostics Testing in Laboratories Certified to Perform High Complexity Testing under CLIA prior to Emergency Use Authorization for Coronavirus Disease-2019 during the Public Health Emergency) issued on January 08, 2020. This test is only authorized for the duration of time the declaration that circumstances exist justifying the authorization of the emergency use of in vitro diagnostic tests for detection of SARS-CoV-2 virus and/or diagnosis of COVID-19 infection under section 564(b)(1) of the Act, 21 U.S.C. 360bbb-3(b)(1), unless the authorization is terminated or revoked sooner. Laboratory - Microbiology an d Antimicrobial susceptibilityOrdered By: Gonzales Richter on 05-09-2022 SARS-CoV-2 (COVID-19) RNA ELDA+probe Ql (Unsp spec) N/A [facility] NOVEL CORONAVIRUSon 06-09-20 21 NARRATIVE This test was performed using isothermal ELDA and has been approved as Emergency Use Authorization (EUA) for the qualitative detection [id number] nucleic acid. Normal [facility] Comment on above: Performed By: #### C OVID #### Testing performed at [place] [id number] [place] [address] SARS-CoV-2 (COVID-19) RNA ELDA+probe Ql (Unsp spec) Not detected Normal NOT DETECTED [facility] Comment on above: Result Comment: Nega tive results do not preclude SARS-CoV-2 infection and should not be used as the sole basis for treatment or other patient management decisions. Optimum specimen types and timing for peak viral levels during infections caused by SARS-CoV-2 has not been determined. The possibility of a false negative result should especially be considered if the patient's recent exposures or clinical presentation suggest that SARS-CoV-2 infection is probable, and diagnostic tests for other causes of illness (e.g., other respiratory illness) are negative. Collection of a new specimen and re-testing may be necessary if the patient is critically ill or clinically deteriorating. Performed By: #### C OVID #### Testing performed at [address] [address] MAMMO SCREENING WITH GENEVIEVE BI LATERALon 01-03-2021 MAMMO SCREENING WITH GENEVIEVE BILATERAL EXAM: MAMMO SCREENING WITH GENEVIEVE BILATERAL HISTORY: Encounter for screening mammogram for breast cancer COMPARISON: 11/11/2019 and 11/01/2018 from [facility] TECHNIQUE: Craniocaudal and mediolateral oblique views of both breasts were obtained. 3-D tomography was performed. CAD was reviewed. FINDINGS: Breast composition: Heterogeneously dense The breasts are symmetric in size. I do not see any architectural distortion or discrete mass. No malignant calcifications are seen. There are areas of focal glandular asymmetry and prominence especially in the inferior medial aspect of the right breast and retroareolar region in the left breast. These areas appear to be stable and generally unchanged from the older outside films. IMPRESSION: Heterogeneously dense breasts are seen with scattered areas of glandular asymmetry and prominence. These appear stable. I do not see any mass or malignancy. BI-RADS 2 - Benign, no evidence of malignancy. Normal interval followup is recommended in 12 months. OVERALL ASSESSMENT- BENIGN A letter of notification will be sent to the patient regarding the results. Normal [facility] NOVEL CORONAVIRUSon 12-02-19 21 NARRATIVE This test was performed using isothermal ELDA and has been approved as Emergency Use Authorization (EUA) for the qualitative detection [id number] nucleic acid. Normal [facility] Comment on above: Performed By: #### C OVID #### Testing performed at [address] [address] SARS-CoV-2 (COVID-19) RNA ELDA+probe Ql (Unsp spec) Not detected Normal NOT DETECTED [facility] Comment on above: Result Comment: Nega tive results do not preclude SARS-CoV-2 infection and should not be used as the sole basis for treatment or other patient management decisions. Optimum specimen types and timing for peak viral levels during infections caused by SARS-CoV-2 has not been determined. The possibility of a false negative result should especially be considered if the patient's recent exposures or clinical presentation suggest that SARS-CoV-2 infection is probable, and diagnostic tests for other causes of illness (e.g., other respiratory illness) are negative. Collection of a new specimen and re-testing may be necessary if the patient is critically ill or clinically deteriorating. Performed By: #### C OVID #### Testing performed at [facility] [address] [place] [address] CNCOon 09-11-2019 CNCO Letter Text Normal [facility] CNOVon 09-10-2019 CNOV Office Visit ([facility] TERRI BALBUENA ([id number]) 1975 F Date Time Provider Department 09/10/19 1:00 PM ALPESH ALVAREZ [facility] During your visit today, we recorded the following information about you: Blood pressure Weight Height Last Period 122/80 87.5 kg 1.499 m 08/31/19 Alpesh Alvarez MD 09/10/2019 2:24 PM Signed CHIEF COMPLAINT: Terri Balbuena is a 43 year old . female who presents for consultation requested by Dr. Banuelos for an opinion regarding postvoid incontinence. HISTORY OF PRESENT ILLNESS: Post void dribble -Ongoing at least two years -It is annoying -Dribbling is not as bad when she is wearing a tampon and notes maybe there is some urine on the tampon sometimes -Denies any urine leakage outside of the dribble that occurs after voiding -Remote history of nephrolithiasis, none recently -Occasional UTIs in life -Had MUS placed ~10 years ago, denies stress urinary incontinence and problems with the sling -No dyspareunia or dysuria Urinary Incontinence: Yes - No. of episodes: multiple times per day; Pad use: 2 per day. (these are PV dribbling) Do you usually experience urine leakage related to coughing, sneezing, or laughing: no Do you usually experience urine leakage related to physical exercise such as walking, running, aerobics, or tennis: no Do you usually experience urine leakage related to lifting or bending over: no Do you usually experience urine leakage related to a feeling of urgency: no Leaks with: post-void dribbling Do you experience urine leakage with intercourse? no Previous UI Treatment: Surgical TVT in 2009 Voiding Dysfunction: Post-void dribbling Urinary Urgency: no # of Daytime Voids: 8 # of Nocturic Episodes: 0 per day Dysuria: no Hematuria: no Recurrent UTI: No Nocturnal Enuresis: no Prolapse Symptoms: Do You usually have a sensation of bulging or protrusion from the vaginal area: no Do you usually have a bulge or something falling out that you can see or feel in the vaginal area: No Do you have pain associated with your prolapse (not pressure or fullness) No Previous Treatment: None Defecatory Symptoms: None Number of Bowel Movements: 1 per Day Fecal Incontinence: No Sexual Dysfunction: No - Active, no complaints Patient said that this did not happen right after the sling, but has been a few years. About 3 years maybe that this has been going on No urgency symptoms. Happens every time she voids but does not continuously leak. 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 She has a previous history of an abnormal mammogram with right breast biopsy normal 2014 LMP: Patient's last menstrual period was 08/31/2019 (exact date).; Menopause No: Menstrual history: Periods are: regular q 28-30 days; . Deliveries: PAST SURGICAL HISTORY Procedure Laterality Date - BREAST BIOPSY Right 2015 - CHOLECYSTECTOMY 2004 - OFFICE LEEP 1999 - S TVTO 2009 - TUBAL LIGATION 2009 PAST MEDICAL HISTORY Diagnosis Date - GERD (gastroesophageal reflux disease) - Hypertension History reviewed. No pertinent family history. 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 Skin: Negative for rash or itching. Psychiatric: Negative for depression. Reports normal stress. Neurologic: Negative for new headache or syncope. Endocrine: Negative for sweating, cold intolerance or heat intolerance. Cardiovascular: Negative for recent chest pain, chest pressure or chest discomfort. Hematologic/Lymphatic : Negative for easy bruising or excessive bleeding. Respiratory: Negative for wheezing, shortness of breath or persistent cough. Gastrointestinal: Negative for persistent abdominal pain. Negative for anorexia, persistent nausea and/or vomiting. Musculoskeletal: Negative for muscle pain, back pain, joint pain or stiffness. I have confirmed and edited as necessary, the PFSH and ROS obtained by others. Alpesh Alvarez MD Exam performed by Dr. Alvarez and Dr. Gill OBJECTIVE: BP 122/80 Ht 4' 11 (1.50m) Wt 193 lb (87.5kg) LMP 08/31/2019 BMI 38.96 kg/(m2). Physical Exam Constitutional: BMI - Body mass index is 38.98 kg/m?. General Appearance: Well appearing, alert, in no acute distress, well-hydrated, well nourished. Skin: Skin color, texture, turgor normal, no suspicious rashes or lesions Lungs: lungs clear to auscultation. Heart: RRR without murmur Breasts: Deferred Abdomen: Abdomen soft, non-tender Pelvic: External Genitalia: No lesions or other abnormalities Vagina: Ant Wall - Cystocele Stage II ; Post Wall - Normal support Cervix / [place] - Normal support Vaginal epithelium: WNL No evidence of urine in the vaginal vault or fistulization. No leakage of urine into the vagina with cough while speculum in place See POP-Q Cervix: Normal Urethra: Normal, No evidence of mesh erosion or urethral diverticulum, no urethral discharge on palpation of urethra Bimanual: Normal size anteverted uterus Rectovaginal: Deferred POP-Q: Prolapse Noted: Yes Aa = 0 Ba = 0 C = -7 gh = 5 pb = 3.5 tvl = 11.5 Ap = -3.0 Bp = -3.0 D = -10 PVR 0 by nurse bladder scan IMPRESSION: Terri Balbuena is a 43 year old female s/p TVT in 2009 with post-void dribbling and stage II anterior compartment prolapse Assessment/PLAN: 1- PV dribbling -Discussed exam findings with patient: no sign of urethro-vaginal fistula, mesh erosion from sling, or urethral diverticulum on exam -Symptoms likely from urine pooling in the vagina after voiding but can not absolutely rule out urethral pathology without cystoscopy -Discussed options: expectant management versus office cystoscopy. Patient to think about possibility of cystoscopy and will return/call if desires procedure 2- Anterior compartment pelvic organ prolapse, stage II -Asx, expectant managment Alpesh Alvarez MD My final recommendations will be communicated back to the requesting physician by way of shared Medical record or letter via [place] mail. Referring Provider: NAOMIE BANUELOS [[id number]] Allergies As of Date: 09/10/2019 (No Known Allergies) Date Reviewed: 09/10/2019 Reviewed by: Nadya (Rn) STEPHANIE Andrade - Fully Assessed Reason for Visit: New Patient [[id number]] Primary Visit Diagnosis:Post-void dribbling [N39.43] Other Visit Diagnosis:Cystocele, midline [N81.11] Order(s):UA DIP, URINE (POC) [[id number]] Order #: [id number]. #:[id number] Prescriptions as of 09/10/2019 Sig: BABY ASPIRIN ORAL Take by mouth once daily. PROBIOTIC BLEND ORAL Take by mouth once daily. SUCRALFATE 1 GRAM TABLET Take 1 g by mouth three times* OMEPRAZOLE 20 MG CAPSULE,HOLLY* Take 40 mg by mouth once radha* LOSARTAN 50 MG TABLET Take 50 mg by mouth once radha* SUMATRIPTAN 50 MG TABLET Take 50 mg by mouth as needed. Problem List As Of Date: 09/10/2019 (None) Encounter Status:Closed by ALPESH ALVAREZ on 09/10/19 Normal [facility] PROGRESSon 09-10-2019 PROGRESS HNO ID: [id number] Author: Alpesh Alvarez Service: ? Author Type: Physician Type: Progress Notes Filed: 09/10/2019 2:24 PM Note Text: CHIEF COMPLAINT: Terri Balbuena is a 43 year old . female who presents for consultation requested by Dr. Banuelos for an opinion regarding postvoid incontinence. HISTORY OF PRESENT ILLNESS: Post void dribble -Ongoing at least two years -It is annoying -Dribbling is not as bad when she is wearing a tampon and notes maybe there is some urine on the tampon sometimes -Denies any urine leakage outside of the dribble that occurs after voiding -Remote history of nephrolithiasis, none recently -Occasional UTIs in life -Had MUS placed ~10 years ago, denies stress urinary incontinence and problems with the sling -No dyspareunia or dysuria Urinary Incontinence: Yes - No. of episodes: multiple times per day; Pad use: 2 per day. (these are PV dribbling) Do you usually experience urine leakage related to coughing, sneezing, or laughing: no Do you usually experience urine leakage related to physical exercise such as walking, running, aerobics, or tennis: no Do you usually experience urine leakage related to lifting or bending over: no Do you usually experience urine leakage related to a feeling of urgency: no Leaks with: post-void dribbling Do you experience urine leakage with intercourse? no Previous UI Treatment: Surgical TVT in 2009 Voiding Dysfunction: Post-void dribbling Urinary Urgency: no # of Daytime Voids: 8 # of Nocturic Episodes: 0 per day Dysuria: no Hematuria: no Recurrent UTI: No Nocturnal Enuresis: no Prolapse Symptoms: Do You usually have a sensation of bulging or protrusion from the vaginal area: no Do you usually have a bulge or something falling out that you can see or feel in the vaginal area: No Do you have pain associated with your prolapse (not pressure or fullness) No Previous Treatment: None Defecatory Symptoms: None Number of Bowel Movements: 1 per Day Fecal Incontinence: No Sexual Dysfunction: No - Active, no complaints Patient said that this did not happen right after the sling, but has been a few years. About 3 years maybe that this has been going on No urgency symptoms. Happens every time she voids but does not continuously leak. 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 She has a previous history of an abnormal mammogram with right breast biopsy normal 2014 LMP: Patient's last menstrual period was 08/31/2019 (exact date).; Menopause No: Menstrual history: Periods are: regular q 28-30 days; . Deliveries: PAST SURGICAL HISTORY Procedure Laterality Date - BREAST BIOPSY Right 2015 - CHOLECYSTECTOMY 2003 - OFFICE LEEP 1999 - S TVTO 2009 - TUBAL LIGATION 2009 PAST MEDICAL HISTORY Diagnosis Date - GERD (gastroesophageal reflux disease) - Hypertension History reviewed. No pertinent family history. 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 Skin: Negative for rash or itching. Psychiatric: Negative for depression. Reports normal stress. Neurologic: Negative for new headache or syncope. Endocrine: Negative for sweating, cold intolerance or heat intolerance. Cardiovascular: Negative for recent chest pain, chest pressure or chest discomfort. Hematologic/Lymphatic : Negative for easy bruising or excessive bleeding. Respiratory: Negative for wheezing, shortness of breath or persistent cough. Gastrointestinal: Negative for persistent abdominal pain. Negative for anorexia, persistent nausea and/or vomiting. Musculoskeletal: Negative for muscle pain, back pain, joint pain or stiffness. I have confirmed and edited as necessary, the PFSH and ROS obtained by others. Alpesh Alvarez MD Exam performed by Dr. Alvarez and Dr. Gill OBJECTIVE: BP 122/80 Ht 4' 11 (1.50m) Wt 193 lb (87.5kg) LMP 08/31/2019 BMI 38.96 kg/(m2). Physical Exam Constitutional: BMI - Body mass index is 38.98 kg/m?. General Appearance: Well appearing, alert, in no acute distress, well-hydrated, well nourished. Skin: Skin color, texture, turgor normal, no suspicious rashes or lesions Lungs: lungs clear to auscultation. Heart: RRR without murmur Breasts: Deferred Abdomen: Abdomen soft, non-tender Pelvic: External Genitalia: No lesions or other abnormalities Vagina: Ant Wall - Cystocele Stage II ; Post Wall - Normal support Cervix / [place] - Normal support Vaginal epithelium: WNL No evidence of urine in the vaginal vault or fistulization. No leakage of urine into the vagina with cough while speculum in place See POP-Q Cervix: Normal Urethra: Normal, No evidence of mesh erosion or urethral diverticulum, no urethral discharge on palpation of urethra Bimanual: Normal size anteverted uterus Rectovaginal: Deferred POP-Q: Prolapse Noted: Yes Aa = 0 Ba = 0 C = -7 gh = 5 pb = 3.5 tvl = 11.5 Ap = -3.0 Bp = -3.0 D = -10 PVR 0 by nurse bladder scan IMPRESSION: Terri Balbuena is a 43 year old female s/p TVT in 2009 with post-void dribbling and stage II anterior compartment prolapse Assessment/PLAN: 1- PV dribbling -Discussed exam findings with patient: no sign of urethro-vaginal fistula, mesh erosion from sling, or urethral diverticulum on exam -Symptoms likely from urine pooling in the vagina after voiding but can not absolutely rule out urethral pathology without cystoscopy -Discussed options: expectant management versus office cystoscopy. Patient to think about possibility of cystoscopy and will return/call if desires procedure 2- Anterior compartment pelvic organ prolapse, stage II -Asx, expectant managment Alpesh Alvarez MD My final recommendations will be communicated back to the requesting physician by way of shared Medical record or letter via [place] mail. Normal [facility] HEP B SURFACE ABon 9 HEP B SURFACE AB Positive Normal POSITIVE [place] [facility] Comment on above: Result Comment: Clinical Interpretation of Immune Status Negative: patient is considered to be not immune to infection with HBV Intermediate: unable to determine if anti-HBs is present at levels consistent with immunity Positive: anti-HBs detected, patient is considered to be immune to infection with HBV Performed By: #### L MMR #### Testing performed at [facility] [address] [place] [address] HEP C ABon 08-19-2019 HEP C AB Negative Normal NEGATIVE [facility] Comment on above: Performed By: #### L MMR #### Testing performed at [facility] [address] [place] [address] MEASLES,MUMP,RUBELLAon 08-19 MUMPS ABS, IGG >300.0 Normal Immune >10.9 [facility] Comment on above: Result Comment: (NOT E) Negative <9.0 Equivocal 9.0 - 10.9 Positive >10.9 A positive result generally indicates past exposure to Mumps virus or previous vaccination. PERFORMED AT [facility] Performed By: #### L MMR #### [place] [address] RUBEOLA AB, IGG >300.0 Normal Immune >16.4 [facility] Comment on above: Result Comment: (NOT E) Negative <13.5 Equivocal 13.5 - 16.4 Positive >16.4 Presence of antibodies to Rubeola is presumptive evidence of immunity except when acute infection is suspected. Performed By: #### L MMR #### [place] [address] RUBELLA AB, IGG 2.00 index Normal Immune >0.99 [facility] Comment on above: Result Comment: (NOT E) Non-immune <0.90 Equivocal 0.90 - 0.99 Immune >0.99 Performed By: #### L MMR #### [place] [address] FAX REQUESTon 08-18-2019 FAX TO [facility] Comment on above: Performed By: #### L MMR #### [place] [address] Vital Signs Date Time Vital Sign Value Performing Clinician Facility 06-13-2023 17:30-0400 Body height 149.86 cm GonzalesStylytRober Other [facility] Other 06-13-2023 17:30-0400 Body mass index (BMI) [Ratio] 29.69 kg/m2 Gonzales Rober Other [facility] Other 06-13-2023 17:30-0400 Body temperature 97.5 [degF] Gonzales Rober Other [facility] Other 06-13-2023 17:30-0400 Body weight 66.68 kg Gonzales Rober Other [facility] Other 06-13-2023 17:30-0400 Diastolic blood pressure 64 mm[Hg] Gonzales Rober Other [facility] Other 06-13-2023 17:30-0400 Respiratory rate 18 /min Gonzales Rober Other [facility] Other 06-13-2023 17:30-0400 SaO2% (BldA) [Mass fraction] 97 % Gonzales Rober Other [facility] Other 06-13-2023 17:30-0400 Systolic blood pressure 112 mm[Hg] Gonzales Rober Other [facility] Other 05-31-2022 18:00-0400 Body height 149.86 cm Gonzales Rober Other [facility] Other 05-31-2022 18:00-0400 Body mass index (BMI) [Ratio] 32.11 kg/m2 Gonzales Rober Other [facility] Other 05-31-2022 18:00-0400 Body temperature 98 [degF] Gonzales Rober Other [facility] Other 05-31-2022 18:00-0400 Body weight 72.12 kg Gonzales Rober Other [facility] Other 05-31-2022 18:00-0400 Diastolic blood pressure 78 mm[Hg] Gonzales Rober Other [facility] Other 05-31-2022 18:00-0400 Respiratory rate 18 /min Gonzales Rober Other [facility] Other 05-31-2022 18:00-0400 SaO2% (BldA) [Mass fraction] 97 % Gonzales Rober Other [facility] Other 05-31-2022 18:00-0400 Systolic blood pressure 116 mm[Hg] Gonzales Rober Other [facility] Other Encounters Encounter Date Encounter Type Care Provider Facility Start: 01-18-2024 ambulatory SELF SELF [facility] Start: 10-04-2023 End: 10-04-2023 ambulatory Gonzales Rober Other [facility] Other Start: 10-04-2023 Telephone encounter Gonzales Rober [facility] Start: 09-06-2023 End: 09-06-2023 ambulatory Gonzales Rober Other [facility] Other Start: 09-06-2023 Telephone encounter Gonzales Rober [facility] Start: 08-11-2023 End: 08-11-2023 ambulatory [facility] Facility:[facility] Start: 08-11-2023 End: 08-11-2023 ambulatory DO Gonzales M. Rober Work Phone: [facility] Work Phone: Start: 08-11-2023 End: 08-11-2023 Departed Referred DO Gonzales Rober Work Phone: [facility] Work Phone: Start: 07-18-2023 End: 07-18-2023 ambulatory Gonzales Rober Other [facility] Other Start: 07-18-2023 Telephone encounter Gonzales Rober [facility] Start: 07-12-2023 End: 07-12-2023 ambulatory Gonzales Rober Other [facility] Other Start: 07-12-2023 Telephone encounter Gonzalse Rober [facility] Start: 06-13-2023 End: 06-13-2023 ambulatory Gonzales Rober Other [facility] Other Start: 06-13-2023 Encounter for genera l adult medical examination without abnormal findings Gonzales Rober [facility] Start: 06-13-2023 Periodic preventive med est patient 40-64yrs Gonzales Rober [facility] Start: 05-31-2023 End: 05-31-2023 ambulatory Gonzales Rober Other [facility] Other Start: 05-31-2023 Telephone encounter Gonzales Rober [facility] Start: 05-26-2023 End: 05-26-2023 ambulatory [facility] Community Facility:[facility] Start: 05-26-2023 End: 05-26-2023 ambulatory DO Gonzales M. Rober Work Phone: [facility] Work Phone: Start: 05-26-2023 End: 05-26-2023 Departed Referred DO Gonzales Rober Work Phone: [facility] Work Phone: Start: 02-14-2023 End: 02-14-2023 ambulatory Naomie Banuelos Facility:[facility] Start: 02-14-2023 End: 02-14-2023 ambulatory DO Gonzales M. Rober Work Phone: [facility] Work Phone: Start: 02-14-2023 End: 02-14-2023 Discharged Recurring DO Gonzales Rober Work Phone: [facility] [address] Start: 02-07-2023 Registered Recurring DO Gonzales R uggles Work Phone: [facility] [address] Start: 02-07-2023 End: 02-07-2023 ambulatory Naomie Waterskes Facility:[facility] Start: 02-07-2023 End: 02-07-2023 ambulatory DO Gonzales M. Rober Work Phone: [facility] Work Phone: Start: 02-07-2023 End: 02-07-2023 Patient encounter procedure DO Gonzales Rober Work Phone: [facility] Work Phone: Start: 12-25-2022 End: 12-25-2022 ambulatory Gonzales Rober Other [facility] Other Start: 12-25-2022 Telephone encounter Gonzales Rober [facility] Start: 07-18-2022 End: 07-18-2022 ambulatory Gonzales Rober Other [facility] Other Start: 07-18-2022 Telephone encounter Gonzales Rober [facility] Start: 06-27-2022 End: 06-27-2022 ambulatory Gonzales Rober Other [facility] Other Start: 06-27-2022 Telephone encounter Gonzales Rober [facility] Start: 05-31-2022 End: 05-31-2022 amb[address] Rober [address] [facility] [employer] Other Start: 05-31-2022 Encounter for genera l adult medical examination without abnormal findings Gonzales Richter [facility] Start: 05-31-2022 Periodic preventive med est patient 40-64yrs Gonzales Richter [facility] Start: 05-31-2022 Telephone encounter Gonzales Richter [facility] Start: 05-09-2022 End: 05-09-2022 Patient encounter procedure DO Gonzales Richter Work Phone: [facility] Start: 12-28-2020 End: 12-28-2020 Subsequent hospital visit by physician Naomie Banuelos Work Phone: [facility] Comment on above: Arrived Procedures Date Procedure Procedure Detail Performing Clinician Start: 02-07-2023 Screening mammograph y of bilateral breasts DO Gonzales Richter Work Phone: Start: 12-28-2020 ORDERS (OUTSIDE) Taty Banuelos Work Phone: Plan of Treatment Date Care Activity Detail Author Start: 06-08-2020 Influenza vaccination INFLUENZA VACC INE (#1) [facility] Start: 2015 Fasting lipid profile LIPID SCREENIN G [facility] Start: 2015 Screening mammography MAMMOGRA M SCREENING DISCUSSION [facility] Start: 12-09-1996 Screening for malign ant neoplasm of cervix CERVICAL CANCER SCREENING DISCUSSION [facility] Start: 12-09-1994 Third diphtheria, tetanus and acellular pertussis (DTaP) vaccination TDAP (ADULT) [facility] Start: 12-09-1993 Tetanus vaccination TETANUS [facility] Start: 12-09-1988 HIV screening HIV SCREENING DISCUSSI ON [facility] End: 12-28-2020 MG Breast Views MAMMO SCREENING WITH GENEVIEVE BILATERAL Imaging Routine Encounter for screening mammogram for breast cancer 1 Occurrences starting 12/28/2020 until 12/28/2020 [facility] Comment on above: 1 Occurrences starti ng 12/28/2020 until 12/28/2020 MG Breast Views MAMMO SCREENING WITH GENEVIEVE BILATERAL Imaging Routine Encounter for screening mammogram for breast cancer 12/28/2020 7:46 AM EDT [facility] Immunizations Immunization Date Immunization Notes Care Provider Mimi brambila 07-08-2021 influenza, seasonal, injectable Gonzales Rober Other [facility] Other 11-10-2020 SARS-COV-2 (COVID-19 ), Mrna, Lnp-s, Pf, 100 Mcg/ 0.5 Ml Dose MODERNA Naomie [facility] 10-12-2020 SARS-COV-2 (COVID-19 ), Mrna, Lnp-s, Pf, 100 Mcg/ 0.5 Ml Dose MODERNA Naomie [facility] 07-13-2020 influenza, seasonal, injectable Gonzales Rober Other [facility] Other 07-08-2018 influenza, seasonal, injectable Gonzales Rober Other [facility] Other 07-17-2017 influenza, seasonal, injectable Gonzales Rober Other [facility] Other Payers Date Payer Category Payer Self-pay [id number] 2022 Unknown [id number] 2022 Unknown [id number] 2020 Unknown [employer] [place] [id number] 2020-Present [id number] Blue Cross Blue Shield [id number] Private Health Insurance [id number] Private Health Insurance [id number] Unknown [facility] Employees [id number] Unknown [id number] Unknown [id number] Unknown [id number] Unknown [id number] Social History Date Type Detail Facility Tobacco smoking status AKIS Unknown if ever smoked [facility] Start: 1975 Sex Assigned At Not on file A CISSOID Sex Assigned At Sex Assigned At Bir th [facility] Other Start: 07-06-2017 Tobacco smoking status NHIS Never smoked tobacco (finding) [facility] Start: 1975 Sex Assigned At Female F [facility] Evaluation note 09-06-2023 Note Date & Type Note Facility 09-06-2023 Evaluation note Encounter Date Diagnosis Assessment Notes Aug, Acquired hypothyroidism (ICD-10 - E03.9) [facility] Other Evaluation note 07-12-2023 Note Date & Type Note Facility 07-12-2023 Evaluation note Encounter Date Diagnosis Assessment Notes Jul, Fatigue, unspecified type (ICD-10 - R53.83) [facility] Other Evaluation note 06-13-2023 Note Date & Type Note Facility 06-13-2023 Evaluation note Encounter Date Diagnosis Assessment Notes Jun, Acquired hypothyroidism (ICD-10 - E03.9) Very lengthy discussion with patient today regarding the pathophysiology of hypothyroidism and the treatment thereof. She would like to go ahead and pursue low-dose thyroid replacement. We will recheck in about 2 to 3 months with a thyroid panel. Patient to call with any concerns. Jun, Encntr for general adult medical exam w/o abnormal findings (ICD-10 - Z00.00) Jun, Microcytic anemia (ICD-10 - D50.9) Pt to trial OTC Slow-FE. Discussed with patient all of the other potential options for treatment, which mainly would include IV iron replacement. She will call with results of the [id number] meds and if need be we will need to pursue the IV replacement. Certainly her number is a modest decrease. Jun, Other No change today...Continue as is...FU PRN/Yearly... [facility] Other Evaluation note 05-31-2023 Note Date & Type Note Facility 05-31-2023 Evaluation note Encounter Date Diagnosis Assessment Notes May, Elevated TSH (ICD-10 - R79.89) [facility] Other Evaluation note 05-31-2022 Note Date & Type Note Facility 05-31-2022 Evaluation note Encounter Date Diagnosis Assessment Notes May, Screening for malignant neoplasm of colon (ICD-10 - Z12.11) May, Encntr for general adult medical exam w/o abnormal findings (ICD-10 - Z00.00) May, Impaired fasting blood sugar (ICD-10 - R73.01) May, Other No change today...[place] as is...FU PRN/Yearly... [facility] Other Evaluation note Note Date & Type Note Facility Evaluation note No Information [facility] Other Evaluation note Note Date & Type Note Facility Evaluation note No assessment information availa [facility] Work Phone: History general Narrative - Reported Note Date & Type Note Facility History general Narrative - Reported Type Medical History Incontinence - stress Medical History plantar fasciitis Medical History PCOS Medical History DEPRESSION Medical History HYPERTENSION Medical History GERD Medical History IFG Medical History 05/2022 COVID Surgical History Gallbladder 2004 Surgical History Tubal 08/2010 Surgical History Bladder Suspension 08/2010 Surgical History EGD/Colonoscopy 10/2010 Hospitalization History childbirth Hospitalization History dizziness and left sided numdness 07/2017 [facility] Other Summary Purpose Family History No Family History Records FoundNo Family History Records FoundNo Family History Records FoundNo Family History Records FoundNo Family History Records Found Advance Directives No Advanced Directives Records Found Advance Directive Response Recorded Date/ Time Advance Directives No June 5:24am Reason for Referral Status Reason Specialty Diagnoses / Procedures Referred By Contact Referred To Contact Closed Mammography Diagnoses Encounter for screening mammogram for breast cancer Procedures MAMMO SCREENING WITH GENEVIEVE BILATERAL Naomie Banuelos MD [address] [place] [address] [facility] [address] [place] [phone] Assessments Diagnosis Encounter for screening mammogram for breast cancer Chief Complaint and Reason for Visit Chief Complaint exposure Chief Complaint Screening Pelvic Floor Chief Complaint complete, A1c, TSH, Vit D Chief Complaint complete, A1c, TSH, Vit D CBC VIT D Additional Source Comments INFORMATION SOURCE (unrecogn ized section and content) DATE CREATED AUTHOR 08/19/2019 [facility] DATE CREATED AUTHOR AUTHOR'S ORGANIZ ATION 09/12/2019 [facility] DATE CREATED AUTHOR AUTHOR'S ORGANIZ ATION 08/13/2021 [facility] DATE CREATED AUTHOR AUTHOR'S ORGANIZ ATION 08/12/2023 [facility] DATE CREATED AUTHOR AUTHOR'S ORGANIZ ATION 01/19/2024 [facility] Reason for Visit (unrecogniz ed section and content) Status Reason Specialty Diagnoses / Procedures Referred By Contact Referred To Contact Closed Mammography Diagnoses Encounter for screening mammogram for breast cancer Procedures MAMMO SCREENING WITH GENEVIEVE BILATERAL Naomie Banuelos MD [address] [place] [address] [facility] [address] [place] [phone] Care Teams (unrecognized sec tion and content) Team Status: Active Member Role Status Dates Gonzales Richter DO Primary Care Provider Active Team Status: Inactive Member Role Status Dates Gonzales Richter , DO Primary Care Provider Active Naomie Banuelos , DO Attending Provider Active Team Status: Inactive Member Role Status Dates Gonzales Richter , DO Primary Care Provider, Attending Provider Active Team Status: Active Member Role Status Dates Gonzales Richter , DO Primary Care Provider Active Naomie Banuelos , DO Attending Provider Active Team Status: Inactive Member Role Status Dates Gonzales Richter , DO Primary Care Provider Active [facility] Attending Provider Active Goals (unrecognized section and content) Goals may be documented in a n alternate section FOR RECORDS PERTAINING TO PATIENTS WHO ARE OR HAVE BEEN ENROLLED IN A CHEMICAL DEPENDENCY/SUBSTANCEABUSE PROGRAM, SOME INFORMATION MAY BE OMITTED. This clinical summary was aggregated from multiple sources. Caution should be exercised in using it in the provision of clinical care. This summary normalizes information from multiple sources, and as a consequence, information in this document may materially change the coding, format and clinical context of patient data. In addition, data may be omitted in some cases. CLINICAL DECISIONS SHOULD BE BASED ON THE PRIMARY CLINICAL RECORDS. [employer] provides no warranty or guarantee of the accuracy or completeness of information in this document.
[2024-02-20 11:51] LABS: Thyroid Stimulating Hormone 3.527 uIU/mL (0.358-3.740)
== END 2024-02-20 09:59 | disposition home or self-care (01) ==
LOC: LAB 10:00
PROVIDERS: PCP Family Medicine; Visit Provider Family Medicine
DX: E03.9 Hypothyroidism, unspecified (principal)
CPT/HCPCS: 36415; 84439; 84443; 84481

== ENCOUNTER 2024-10-04 07:58 | Outpatient (OUT) | payer OTHER, BC, SELFPAY ==
--- OUTSIDE RECORDS SUMMARY | 2024-10-04 08:03 | XMS_ITS | CCD ---
Author Organization [facility] Care Team Providers Care Dog Barber Name Role Phone Rober, Gonzales Primary Care Provider [phone] Rober, Gonzales Unavailable Rober, DO Gonzales M. Primary Care Provider Rober, DO Gonzales M. Attending Provider Rober, DO Gonzales M. Primary Care Provider Rinkes, DO Naomie Attending Provider Rober, DO Gonzales M. Primary Care Provider Community, Outreach Attending Provider [phone] Rober, Gonzales M. Primary Care Unavailable Community, Outreach Attending Unavailable Community, Outreach Admitting Unavailable Rober, Gonzales M. Primary Care Unavailable Community, Outreach Attending Unavailable Community, Outreach Admitting Unavailable Self, Referral Attending Unavailable Self, Referral Admitting Unavailable Rober, Gonzales M. Primary Care Unavailable Rinkes, Naomie Referring Unavailable ROBER, GONZALES Referring Unavailable ROBER, GONZALES Attending Unavailable ROBER, GONZALES Primary Care Unavailable RINKES, NAOMIE E Attending Unavailable RINKES, NAOMIE E Referring Unavailable ROBER, GONZALES Primary Care Unavailable SELF, SELF Referring Unavailable NON-PATIENT FAIRSLUIS Attending Unaregino danielsonle NON-PATIENT FAIRS, LUIS Attending Unavai lable ROBER, GONZALES Primary Care Unavailable SELF, SELF Referring Unavailable Medications Current Medications Medication Drug Class(es) [...] mg tablet Active 4 MG PO Q8H 10 July 03, 2017 11:06am PARoxetine hydrochloride 20 [...] tablet Orally take at the onset of February repeat in 30 minutes if no improvement [...] Hyponatremia; Translations: [Hypo-osmolality and hyponatremia] 07-02-2017 Episodic Headache; including migraine (12 sources) Migraine with [...] conditions (not mental disorders or infectious disease) (3 sources) Encounter for screening for malignant neoplasm [...] [Encounter for screening mammogram for breast cancer] Results Test Name Value Interpretation Reference Range Facility 25 0H VITAMIN D LEVELon 07-09 25 0H VITAMIN D LEVEL 72.9 NG/ML Normal [facility] Comment on above: Result Comment: DEFICIENT <20 NG/ML INSUFFICIENT 20-<30 NG/ML SUFFICIENT 30-100 NG/ML POTENTIAL TOXICITY >100 NG/ML Testing performed at [place] [address] Performed By: #### V ITD #### [place] [address] CBCon 08-04-2024 ABSOLUTE BAS 0.1 10*3/uL Normal 0.0-0.2 [facility] Comment on above: Result Comment: Test ing performed at [place] [address] Performed By: #### A CBC, HFC #### [place] [address] ABSOLUTE EOS 0.1 10*3/uL Normal 0.0-0.7 [facility] Comment on above: Performed By: #### A CBC, HFC #### Testing performed at [address] [address] ABSOLUTE NEUTROPHIL COUNT 3.6 10*3/uL Normal 1.4-6.5 [facility] Comment on above: Performed By: #### A CBC, HFC #### Testing performed at [address] [address] Basophils/100 WBC (Bld) 1.2 % Normal 0.0-2.0 [facility] Comment on above: Performed By: #### A CBC, HFC #### Testing performed at [address] [address] DTYPE AUTO DIFF Normal [facility] Comment on above: Performed By: #### A CBC, HFC #### Testing performed at [address] [address] Eosinophils/100 WBC (Bld) 2.4 % Normal 0.0-11.0 [facility] Comment on above: Performed By: #### A CBC, HFC #### Testing performed at [address] [address] Lymphocytes (Bld) [#/Vol] 1.9 10*3/uL Normal 1.2-3.4 [facility] Comment on above: Performed By: #### A CBC, HFC #### Testing performed at [address] [address] Lymphocytes/100 WBC (Bld) 30.3 % Normal 20.0-55.0 [facility] Comment on above: Performed By: #### A CBC, HFC #### Testing performed at [address] [address] Monocytes (Bld) [#/Vol] 0.4 10*3/uL Normal 0.0-0.7 [facility] Comment on above: Performed By: #### A CBC, HFC #### Testing performed at [address] [address] Monocytes/100 WBC (Bld) 7.1 % Normal 0.0-10.0 [facility] Comment on above: Performed By: #### A CBC, HFC #### Testing performed at [address] [address] Neutrophils/100 WBC (Bld) 59.0 % Normal 37.0-75.0 [facility] Comment on above: Performed By: #### A CBC, HFC #### Testing performed at [address] [address] Erythrocyte distribution width (RBC) [Ratio] 19.5 % High 11.5-14.5 [facility] Comment on above: Performed By: #### A CBC, HFC #### Testing performed at [address] [address] Hematocrit (Bld) [Volume fraction] 29.1 % Low 36.0-48.0 [facility] Comment on above: Performed By: #### A CBC, HFC #### Testing performed at [address] [address] Hemoglobin (Bld) [Mass/Vol] 9.3 g/dL Low 12.0-16.0 [facility] Comment on above: Performed By: #### A CBC, HFC #### Testing performed at [address] [address] MCH (RBC) [Entitic mass] 22.9 pg Low 26.0-35.0 [facility] Comment on above: Performed By: #### A CBC, HFC #### Testing performed at [address] [address] MCHC (RBC) [Mass/Vol] 31.9 g/dL Normal 27.0-37.0 [facility] Comment on above: Performed By: #### A CBC, HFC #### Testing performed at [address] [address] MCV (RBC) [Entitic vol] 71.7 fL Low 80.0-100.0 [facility] Comment on above: Performed By: #### A CBC, HFC #### Testing performed at [address] [address] Platelet mean volume (Bld) [Entitic vol] 6.2 fL Low 7.4-11.0 [facility] Comment on above: Performed By: #### A CBC, HFC #### Testing performed at [address] [address] Platelets (Bld) [#/Vol] 519 10*3/uL High 130-400 [facility] Comment on above: Performed By: #### A CBC, HFC #### Testing performed at [address] [address] RBC (Bld) [#/Vol] 4.06 10*6/uL Normal 4.0-5.4 [facility] Comment on above: Performed By: #### A CBC, HFC #### Testing performed at [address] [address] WBC (Bld) [#/Vol] 6.2 10*3/uL Normal 3.6-11.0 [facility] Comment on above: Performed By: #### A CBC, HFC #### Testing performed at [address] [address] CHEMISTRY, [facility] ALT [Catalytic activity/Vol] 14 U/L Normal <35 [facility] Comment on above: Performed By: #### A CBC, HFC #### Testing performed at [address] [address] Calcium [Mass/Vol] 9.1 mg/dL Normal 8.4-10.2 [facility] Comment on above: Performed By: #### A CBC, HFC #### Testing performed at [address] [address] Cholesterol [Mass/Vol] 121 mg/dL Normal 107-217 [facility] Comment on above: Performed By: #### A CBC, HFC #### Testing performed at [address] [address] Cholesterol in HDL [Mass/Vol] 53 mg/dL Normal 33-75 [facility] Comment on above: Performed By: #### A CBC, HFC #### [place] [address] Cholesterol in LDL [Mass/Vol] 49 mg/dL Normal <100 [facility] Comment on above: Performed By: #### A CBC, HFC #### Testing performed at [place] [id number] Cholesterol in VLDL [Mass/Vol] 19 mg/dL Normal 5.0-25 [facility] Comment on above: Performed By: #### A CBC, HFC #### [place] [address] Cholesterol.total/Choles terol in HDL [Mass ratio] 2.28 {ratio} Normal [facility] Comment on above: Result Comment: RISK TOTAL/HDL RATIO MEN WOMEN 1/2 AVERAGE 3.43 3.27 AVERAGE 4.97 4.44 2X AVERAGE 9.55 7.05 3X AVERAGE 23.99 11.04 Testing performed at [place] [id number] Performed By: #### A CBC, HFC #### [place] [address] Creatinine [Mass/Vol] 0.80 mg/dL Normal 0.7-1.2 [facility] Comment on above: Performed By: #### A CBC, HFC #### Testing performed at [place] [id number] EST. GFR, 98 ml/min/1.73sq.m [facility] Comment on above: Performed By: #### A CBC, HFC #### Testing performed at [place] [id number] EST. GFR,Non 81 ml/min/1.73sq.m [facility] Comment on above: Performed By: #### A CBC, HFC #### Testing performed at [place] [id number] Gamma glutamyl transferase [Catalytic activity/Vol] U/L Low 12-43 [facility] Comment on above: Performed By: #### A CBC, HFC #### Testing performed at [address] [address] GFR Information Average GFR for 40-4 9 years old = 99. Normal [facility] Comment on above: Result Comment: [employer] giovanni Kidney disease, GFR = <60. Kidney failure, GFR = <15. The GFR estimate is not adjusted for extreme body surface area or acute process, nor has it been validated for women or ethnic groups other than and . Performed By: #### A CBC, HFC #### Testing performed at [place] [id number] Glucose [Mass/Vol] 84 mg/dL Normal 70-100 [facility] Comment on above: Result Comment: NORMAL <100 mg/dL PREDIABETES 101-126 mg/dL DIABETES 126 mg/dL or higher Performed By: #### A CBC, HFC #### Testing performed at [place] [id number] Potassium [Moles/Vol] 4.0 mmol/L Normal 3.5-5.1 [facility] Comment on above: Performed By: #### A CBC, HFC #### Testing performed at [place] [id number] Sodium [Moles/Vol] 131 mmol/L Low 137-145 [facility] Comment on above: Performed By: #### A CBC, HFC #### Testing performed at [place] [id number] Triglyceride [Mass/Vol] 94 mg/dL Normal 0-150 [facility] Comment on above: Performed By: #### A CBC, HFC #### Testing performed at [place] [id number] Urea nitrogen [Mass/Vol] 15 mg/dL Normal 7-20 [facility] Comment on above: Performed By: #### A CBC, HFC #### Testing performed at [place] [id number] FAX REQUESTon 04-03-2024 FAX TO [phone] Normal [facility] Comment on above: Performed By: #### U MAC, FX #### Testing performed at [address] [address] URINE MACROSCOPICon 04-03-20 24 Bilirubin Ql (U) Negative Normal NEGATIVE [facility] Comment on above: Performed By: #### U MAC, FX #### Testing performed at [address] [address] Clarity (U) CLEAR Normal CLEAR [facility] Comment on above: Performed By: #### U MAC, FX #### Testing performed at [address] [address] Color (U) LIGHT YELLOW Abnormal YELLOW [facility] Comment on above: Performed By: #### U MAC, FX #### Testing performed at [address] [address] Glucose Ql (U) Negative Normal NEGATIVE [facility] Comment on above: Performed By: #### U MAC, FX #### Testing performed at [address] [address] pH (U) 5.5 [pH] Normal 5.0-7.0 [facility] Comment on above: Performed By: #### U MAC, FX #### Testing performed at [address] [address] URINE HEMOGLOBIN Negative Normal NEGATIVE [facility] Comment on above: Performed By: #### U MAC, FX #### Testing performed at [address] [address] URINE KETONE Negative Normal NEGATIVE [facility] Comment on above: Performed By: #### U MAC, FX #### Testing performed at [address] [address] URINE LEUKOTEST Negative Normal NEGATIVE [facility] Comment on above: Performed By: #### U MAC, FX #### Testing performed at [address] [address] URINE NITRATES Negative Normal NEGATIVE [facility] Comment on above: Performed By: #### U MAC, FX #### Testing performed at [address] [address] URINE SPEC GRAVITY 1.010 Normal 1.010-1.025 [facility] Comment on above: Performed By: #### U MAC, FX #### Testing performed at [address] [address] URINE TOTAL PROTEIN Negative Normal NEGATIVE [facility] Comment on above: Performed By: #### U MAC, FX #### Testing performed at [address] [address] Urobilinogen Qn (U) 0.2 {Shawn'U}/dL Normal 0.2-1.0 [facility] Comment on above: Performed By: #### U MAC, FX #### Testing performed at [address] [address] MM screening mammo BI w/CADo n 02-20-2024 MM screening mammo BI w/CAD [facility] [place] [address] Mammography Report Signed Patient: Terri Balbuena MR#: [id number] : 1975 Acct:[id number] Age/Sex: 48 / F ADM Date: 02/20/24 Loc: [place] Room: Type: [facility] Attending Dr: Referral Self Copies to: Naomie Banuelso DO SELF,REFERRAL Gonzales Richter DO Ordering Provider: SELF,REFERRAL Date of Service: 02/20/24 MM/MM screening mammo BI w/CAD: SCREENING CLINICAL DATA: Screening for malignancy. BILATERAL SCREENING MAMMOGRAMS - FULL FIELD DIGITAL WITH TOMOSYNTHESIS AND CAD Tomosynthesis craniocaudal and mediolateral oblique views of both breasts were obtained using low- dose digital technique. Comparison is made to prior studies from 02/07/2023, 02/04/2022, 25/12/2020, and 11/11/2019. This examination was reviewed with the aid of CAD. There are scattered fibroglandular densities. Benign-appearing lymph nodes are noted along the chest wall. Benign-appearing calcifications present bilaterally. There is a biopsy clip in the right breast which is unchanged. Similar focal asymmetries are noted on the right. There are no dominant masses, typically malignant calcifications or architectural distortion. There has been no significant interval change. MM/MM screening mammo BI w/CAD IMPRESSION: NO MAMMOGRAPHIC EVIDENCE OF MALIGNANCY. ROUTINE FOLLOW-UP IS RECOMMENDED IN ONE YEAR. RESULT CODE: 2 Benign Findings(s) DENSITY CODE: 2 (approximately 25-50% glandular) FOLLOW UP: 1YR The false-negative rate of mammography is approximately 10-percent. Management of a palpable abnormality must be based on clinical grounds. Patient was entered into a reminder system with a target due date for the next mammogram. Impression dictated by: Marino Orta M.D.02/20/2024 10:27 AM Dictation Location: [facility] Transcribed By: [facility] 02/20/24 1027 Dictated By: Marino Orta II, MD 02/20/24 1023 Signed By: 02/20/24 1027 Normal [facility] 25 0H VITAMIN D LEVELon 01-06 25 0H VITAMIN D LEVEL 78.3 NG/ML Normal [facility] Comment on above: Result Comment: DEFICIENT <20 NG/ML INSUFFICIENT 20-<30 NG/ML SUFFICIENT 30-100 NG/ML POTENTIAL TOXICITY >100 NG/ML Testing performed at [place] [address] Performed By: #### V ITD #### [place] [address] CBCon 01-18-2024 ABSOLUTE BAS 0.2 10*3/uL Normal 0.0-0.2 [facility] Comment on above: Result Comment: Test ing performed at [place] [address] Performed By: #### A CBC, HFC #### [place] [address] ABSOLUTE EOS 0.3 10*3/uL Normal 0.0-0.7 [facility] Comment on above: Performed By: #### A CBC, HFC #### [place] [address] ABSOLUTE NEUTROPHIL COUNT 3.5 10*3/uL Normal 1.4-6.5 [facility] Comment on above: Performed By: #### A CBC, HFC #### Testing performed at [address] [place] [address] Basophils/100 WBC (Bld) 2.7 % High 0.0-2.0 A [facility] Comment on above: Performed By: #### A CBC, HFC #### Testing performed at [address] [place] [address] DTYPE AUTO DIFF Normal [facility] Comment on above: Performed By: #### A CBC, HFC #### Testing performed at [address] [place] [address] Eosinophils/100 WBC (Bld) 3.6 % Normal 0.0-11.0 [facility] Comment on above: Performed By: #### A CBC, HFC #### Testing performed at [address] [place] [address] Lymphocytes (Bld) [#/Vol] 2.5 10*3/uL Normal 1.2-3.4 [facility] Comment on above: Performed By: #### A CBC, HFC #### Testing performed at [address] [place] [address] Lymphocytes/100 WBC (Bld) 35.9 % Normal 20.0-55.0 [facility] Comment on above: Performed By: #### A CBC, HFC #### Testing performed at [address] [place] [address] Monocytes (Bld) [#/Vol] 0.5 10*3/uL Normal 0.0-0.7 [facility] Comment on above: Performed By: #### A CBC, HFC #### Testing performed at [address] [place] [address] Monocytes/100 WBC (Bld) 7.1 % Normal 0.0-10.0 [facility] Comment on above: Performed By: #### A CBC, HFC #### Testing performed at [address] [place] [address] Neutrophils/100 WBC (Bld) 50.7 % Normal 37.0-75.0 [facility] Comment on above: Performed By: #### A CBC, HFC #### Testing performed at [address] [address] Erythrocyte distribution width (RBC) [Ratio] 18.8 % High 11.5-14.5 [facility] Comment on above: Performed By: #### A CBC, HFC #### Testing performed at [address] [address] Hematocrit (Bld) [Volume fraction] 33.9 % Low 36.0-48.0 [facility] Comment on above: Performed By: #### A CBC, HFC #### Testing performed at [address] [address] Hemoglobin (Bld) [Mass/Vol] 10.8 g/dL Low 12.0-16.0 [facility] Comment on above: Performed By: #### A CBC, HFC #### Testing performed at [place] [id number] MCH (RBC) [Entitic mass] 23.2 pg Low 26.0-35.0 [facility] Comment on above: Performed By: #### A CBC, HFC #### Testing performed at [address] [address] MCHC (RBC) [Mass/Vol] 31.9 g/dL Normal 27.0-37.0 [facility] Comment on above: Performed By: #### A CBC, HFC #### Testing performed at [address] [address] MCV (RBC) [Entitic vol] 72.5 fL Low 80.0-100.0 [facility] Comment on above: Performed By: #### A CBC, HFC #### Testing performed at [address] [address] Platelet mean volume (Bld) [Entitic vol] 6.3 fL Low 7.4-11.0 [facility] Comment on above: Performed By: #### A CBC, HFC #### Testing performed at [address] [address] Platelets (Bld) [#/Vol] 478 10*3/uL High 130-400 [facility] Comment on above: Performed By: #### A CBC, HFC #### Testing performed at [address] [address] RBC (Bld) [#/Vol] 4.67 10*6/uL Normal 4.0-5.4 [facility] Comment on above: Performed By: #### A CBC, HFC #### Testing performed at [address] [address] WBC (Bld) [#/Vol] 6.9 10*3/uL Normal 3.6-11.0 [facility] Comment on above: Performed By: #### A CBC, HFC #### Testing performed at [address] [address] CHEMISTRY, [facility] ALT [Catalytic activity/Vol] 15 U/L Normal <35 [facility] Comment on above: Performed By: #### A CBC, HFC #### Testing performed at [address] [place] [address] Calcium [Mass/Vol] 9.3 mg/dL Normal 8.4-10.2 [facility] Comment on above: Performed By: #### A CBC, HFC #### Testing performed at [address] [address] Cholesterol [Mass/Vol] 115 mg/dL Normal 107-217 [facility] Comment on above: Performed By: #### A CBC, HFC #### Testing performed at [address] [address] Cholesterol in HDL [Mass/Vol] 51 mg/dL Normal 33-75 [facility] Comment on above: Performed By: #### A CBC, HFC #### Testing performed at [address] [address] Cholesterol in LDL [Mass/Vol] 51 mg/dL Normal <100 [facility] Comment on above: Performed By: #### A CBC, HFC #### Testing performed at [address] [place] [address] Cholesterol in VLDL [Mass/Vol] 13 mg/dL Normal 5.0-25 [facility] Comment on above: Performed By: #### A CBC, HFC #### [place] [address] Cholesterol.total/Choles terol in HDL [Mass ratio] 2.25 {ratio} Normal [facility] Comment on above: Result Comment: RISK TOTAL/HDL RATIO MEN WOMEN 1/2 AVERAGE 3.43 3.27 AVERAGE 4.97 4.44 2X AVERAGE 9.55 7.05 3X AVERAGE 23.99 11.04 Testing performed at [place] [address] Performed By: #### A CBC, C #### [place] [address] Creatinine [Mass/Vol] 0.80 mg/dL Normal 0.7-1.2 [facility] Comment on above: Performed By: #### A CBC, HFC #### Testing performed at [place] [id number] EST. GFR, 98 ml/min/1.73sq.m [facility] Comment on above: Performed By: #### A CBC, C #### [place] [address] EST. GFR,Non 81 ml/min/1.73sq.m [facility] Comment on above: Performed By: #### A CBC, HFC #### [place] [address] Gamma glutamyl transferase [Catalytic activity/Vol] 15 U/L Normal 12-43 [facility] Comment on above: Performed By: #### A CBC, HFC #### [place] [address] GFR Information Average GFR for 40-4 9 years old = 99. Normal [facility] Comment on above: Result Comment: [employer] giovanni Kidney disease, GFR = <60. Kidney failure, GFR = <15. The GFR estimate is not adjusted for extreme body surface area or acute process, nor has it been validated for women or ethnic groups other than and . Performed By: #### A CBC, HFC #### Testing performed at [address] [address] Glucose [Mass/Vol] 85 mg/dL Normal 70-100 [facility] Comment on above: Result Comment: NORMAL <100 mg/dL PREDIABETES 101-126 mg/dL DIABETES 126 mg/dL or higher Performed By: #### A CBC, HFC #### Testing performed at [place] [id number] Potassium [Moles/Vol] 4.2 mmol/L Normal 3.5-5.1 [facility] Comment on above: Performed By: #### A CBC, HFC #### Testing performed at [place] [id number] Sodium [Moles/Vol] 135 mmol/L Low 137-145 [facility] Comment on above: Performed By: #### A CBC, HFC #### Testing performed at [place] [id number] Triglyceride [Mass/Vol] 63 mg/dL Normal 0-150 [facility] Comment on above: Performed By: #### A CBC, HFC #### Testing performed at [address] [address] Urea nitrogen [Mass/Vol] 21 mg/dL High 7-20 [facility] Comment on above: Performed By: #### A CBC, HFC #### Testing performed at [address] [address] HEMOGLOBIN A1Con 01-18-2024 Glucose [Mass/Vol] 105 mg/dL Normal [facility] Comment on above: Result Comment: Test ing performed at [place] [address] Performed By: #### H A1CT #### Testing performed at [address] [address] HbA1c (Bld) [Mass fraction] 5.3 % Normal 0-6 [facility] Comment on above: Result Comment: NORMAL <5.7% PREDIABETES 5.7-6.4% DIABETES 6.5% OR HIGHER Performed By: #### H A1CT #### [place] [address] Alanine aminotransferase [En zymatic activity/volume] in Serum or PlasmaOrdered By: OUTREACH COMMUNITY on 08-11-2023 ALT [Catalytic activity/Vol] 10 U/L Normal 7-52 [facility] Comment on above: Performed By: #### O UTREACH LIPID, OUTREACH CMP, OUTREACH VITD, CBCNOOUTREACH #### [facility] [address] [place] [id number] [place] Albumin [Mass/volume] in Ser um or Plasma by Bromocresol green (BCG) dye binding methoOrdered By: OUTREACH COMMUNITY on 08-11-2023 Albumin BCG dye [Mass/Vol] 3.9 g/dL 3.5-5.7 [facility] Alkaline phosphatase [Enzyma tic activity/volume] in Serum or PlasmaOrdered By: OUTREACH COMMUNITY on 08-11-2023 ALP [Catalytic activity/Vol] 45 U/L Normal 34-104 [facility] Comment on above: Performed By: #### O UTREACH LIPID, OUTREACH CMP, OUTREACH VITD, CBCNOOUTREACH #### [facility] [address] [place] [id number] [place] Aspartate aminotransferase [ Enzymatic activity/volume] in Serum or PlasmaOrdered By: OUTREACH COMMUNITY on 08-11-2023 AST [Catalytic activity/Vol] 13 U/L Normal 13-39 [facility] Comment on above: Performed By: #### O UTREACH LIPID, OUTREACH CMP, OUTREACH VITD, CBCNOOUTREACH #### [facility] [address] [place] [id number] [place] Bilirubin.total [Mass/volume ] in Serum or PlasmaOrdered By: OUTREACH COMMUNITY on 08-11-2023 Bilirubin [Mass/Vol] 0.3 mg/dL Normal 0.3-1.[address] [facility] Comment on above: Performed By: #### O UTREACH LIPID, OUTREACH CMP, OUTREACH VITD, CBCNOOUTREACH #### [facility] [address] [place] [id number] [place] CBC Without Differentialon 1 10-11-2022 Mean Corpuscular HGB Conc 31.5 g/dL Low 32.0-35.0 [facility] Comment on above: Performed By: #### O UTREACH LIPID, OUTREACH CMP, OUTREACH VITD, CBCNOOUTREACH #### [address] WBC (Bld) [#/Vol] 5.9 10*3/uL Normal 3.8-11.6 [facility] Comment on above: Performed By: #### O UTREACH LIPID, OUTREACH CMP, OUTREACH VITD, CBCNOOUTREACH #### [address] CMP Outreachon 08-11-2023 Albumin [Mass/Vol] 3.9 g/dL Normal 3.5-5.7 [facility] Group Comment on above: Performed By: #### O UTREACH LIPID, OUTREACH CMP, OUTREACH VITD, CBCNOOUTREACH #### [address] GFR/1.73 sq M.predicted MDRD (S/P/Bld) [Vol rate/Area] mL/min/{1.73_m2} Normal [facility] Comment on above: Performed By: #### O UTREACH LIPID, OUTREACH CMP, OUTREACH VITD, CBCNOOUTREACH #### [address] Calcium [Mass/volume] in Ser um or PlasmaOrdered By: OUTREACH COMMUNITY on 08-11-2023 Calcium [Mass/Vol] 8.8 mg/dL Normal 8.6-10.3 [facility] Comment on above: Performed By: #### O UTREACH LIPID, OUTREACH CMP, OUTREACH VITD, CBCNOOUTREACH #### [address] Carbon dioxide, total [Moles /volume] in Serum or PlasmaOrdered By: OUTREACH COMMUNITY on 08-11-2023 CO2 [Moles/Vol] 26.8 mmol/L Normal 21.0-31.0 [facility] Comment on above: Performed By: #### O UTREACH LIPID, OUTREACH CMP, OUTREACH VITD, CBCNOOUTREACH #### [facility] [address] [place] [id number] [place] Chloride [Moles/volume] in S pablo or PlasmaOrdered By: OUTREACH COMMUNITY on 08-11-2023 Chloride [Moles/Vol] 106 mmol/L Normal 98-[address] [facility] Comment on above: Performed By: #### O UTREACH LIPID, OUTREACH CMP, OUTREACH VITD, CBCNOOUTREACH #### [facility] [address] [place] [address] [place] Cholesterol [Mass/volume] in Serum or PlasmaOrdered By: OUTREACH COMMUNITY on 08-11-2023 Cholesterol [Mass/Vol] 121 mg/dL Low 140-200 [facility] Comment on above: Chol less than 200 m g/dl low riskChol 201-239 mg/dl borderline riskChol 240 mg/dl and greater high risk Result Comment: Chol less than 200 mg/dl low risk Chol 201-239 mg/dl borderline risk Chol 240 mg/dl and greater high risk Performed By: #### O UTREACH LIPID, OUTREACH CMP, OUTREACH VITD, CBCNOOUTREACH #### [facility] [address] [id number] [place] Cholesterol in LDL Calc [Mas s/Vol]Ordered By: OUTREACH COMMUNITY on 08-11-2023 Cholesterol in LDL [Mass/Vol] 59 mg/dL 0-100 [facility] Comment on above: LDL ATP III CLASSIFI CATIONLDL less than 100 mg/dL OptimalLDL 100-129 mg/dL Near or above optimalLDL 130-159 mg/dL Borderline highLDL 160-189 mg/dL HighLDL greater than 189 mg/dL Very high Cholesterol in VLDL Calc [Ma ss/Vol]Ordered By: OUTREACH COMMUNITY on 08-11-2023 Cholesterol in VLDL [Mass/Vol] 13 mg/dL [facility] Creatinine [Mass/volume] in Serum or PlasmaOrdered By: OUTREACH COMMUNITY on 08-11-2023 Creatinine [Mass/Vol] 0.82 mg/dL Normal 0.60-1.20 [facility] Comment on above: Performed By: #### O UTREACH LIPID, OUTREACH CMP, OUTREACH VITD, CBCNOOUTREACH #### [facility] [address] Erythrocyte distribution wid th [Ratio] by Automated countOrdered By: [facility] on 08-11-2023 Erythrocyte distribution width (RBC) [Ratio] 22.3 % High 11.9-15.3 [facility] Comment on above: Performed By: #### O UTREACH LIPID, OUTREACH CMP, OUTREACH VITD, CBCNOOUTREACH #### [facility] [address] Erythrocytes [#/volume] in B lood by Automated countOrdered By: [facility] on 08-11-2023 RBC (Bld) [#/Vol] 4.40 10*6/uL Normal 3.60-5.00 [facility] Comment on above: Performed By: #### O UTREACH LIPID, OUTREACH CMP, OUTREACH VITD, CBCNOOUTREACH #### [facility] [address] Glucose [Mass/volume] in Ser um or PlasmaOrdered By: [facility] on 08-11-2023 Glucose [Mass/Vol] 104 mg/dL High 70-100 [facility] Comment on above: ADA recommended refe rence rangeRandom Glucose Reference Range is dependent on time and content of last meal. Glucose of more than 200 mg/dL in a nonstressed, ambulatory subject supports the diagnosis of Diabetes Mellitus. Result Comment: [place] Glucose Reference Range is dependent on time and content of last meal. Glucose of more than 200 mg/dL in a nonstressed, ambulatory subject supports the diagnosis of Diabetes Mellitus. ADA recommended reference range Performed By: #### O UTREACH LIPID, OUTREACH CMP, OUTREACH VITD, CBCNOOUTREACH #### [facility] [address] Hematocrit [Volume Fraction] of Blood by Automated countOrdered By: [facility] on 08-11-2023 Hematocrit (Bld) [Volume fraction] 33.0 % Low 34.0-46.4 [facility] Comment on above: Performed By: #### O UTREACH LIPID, OUTREACH CMP, OUTREACH VITD, CBCNOOUTREACH #### [facility] [address] Hemoglobin [Mass/volume] in BloodOrdered By: [facility] on 08-11-2023 Hemoglobin (Bld) [Mass/Vol] 10.4 g/dL Low 11.8-15.4 [facility] Comment on above: Performed By: #### O UTREACH LIPID, OUTREACH CMP, OUTREACH VITD, CBCNOOUTREACH #### [facility] [address] [id number] [place] Leukocytes [#/volume] correc freddie for nucleated erythrocytes in Blood by Automated counOrdered By: [facility] on 08-11-2023 WBC corrected for nucl RBC Auto (Bld) [#/Vol] 5.9 10*3/uL 3.8-11.6 [facility] Lipid Profile [facility] LDL Cholesterol,Calculated 59 mg/dL Normal 0-100 [facility] Comment on above: Result Comment: LDL ATP III CLASSIFICATION LDL less than 100 mg/dL Optimal LDL 100-129 mg/dL Near or above optimal LDL 130-159 mg/dL Borderline high LDL 160-189 mg/dL High LDL greater than 189 mg/dL Very high Performed By: #### O UTREACH LIPID, OUTREACH CMP, OUTREACH VITD, CBCNOOUTREACH #### [facility] [address] Triglyceride w/Reflex 66 mg/dL Normal 0-149 [facility] Comment on above: Result Comment: TRIG ATP III CLASSIFICATION TRIG less than 150 mg/dL Normal TRIG 150-199 mg/dL Borderline high TRIG 200-500 mg/dL High TRIG greater than 500 mg/dL Very high Standard traceable to the Center for Disease Conrtrol and Prevention (CDC) test method. Performed By: #### O UTREACH LIPID, OUTREACH CMP, OUTREACH VITD, CBCNOOUTREACH #### [facility] [address] [id number] [place] VLDL CHOLESTEROL 13 mg/dL Normal [facility] Comment on above: Performed By: #### O UTREACH LIPID, OUTREACH CMP, OUTREACH VITD, CBCNOOUTREACH #### [facility] [address] MCH [Entitic mass] by Automa freddie countOrdered By: OUTREACH COMMUNITY on 08-11-2023 MCH (RBC) [Entitic mass] 23.6 pg Low 24.7-34.3 [facility] Comment on above: Performed By: #### O UTREACH LIPID, OUTREACH CMP, OUTREACH VITD, CBCNOOUTREACH #### [facility] [address] MCHC Auto (RBC) [Mass/Vol]Or dered By: OUTREACH COMMUNITY on 08-11-2023 MCHC (RBC) [Mass/Vol] 31.5 g/dL 32.0-35.0 [facility] MCV [Entitic volume] by Auto mated countOrdered By: OUTREACH [facility] on 08-11-2023 MCV (RBC) [Entitic vol] 75.0 fL Low 80-100 [facility] Comment on above: Performed By: #### O UTREACH LIPID, OUTREACH CMP, OUTREACH VITD, CBCNOOUTREACH #### [facility] [address] [place] [address] No Panel InformationOrdered By: OUTREACH COMMUNITY on 08-11-2023 Estimated GFR (CKD-EPI) > 60.0 mL/Min [facility] Creatinine Clearance (Chem N/A [facility] Outreach VitD 25on 3 Outreach VitD 25 41.7 ng/mL Normal 30-100 [facility] Comment on above: Result Comment: MEMO MIN D STATUS 25(OH)VITAMIN D RANGE (ng/mL) Deficient <20 Insufficient 20 to <30 Sufficient 30 to 100 Reference: Neyda MF,Angela NC, Ravin FONSECA, et al. Evaluation,treatment, and prevention of vitamin D deficiency; an Endocrine Society clinical practice guideline. JCEM. 2010; 96(7):1911-30. PERFORMED BY: [place] [address] PATHOLOGIST SERVICE ORDER DISPATCHER DAJA ALVAREZ M.D. Performed By: #### O UTREACH LIPID, OUTREACH CMP, OUTREACH VITD, CBCNOOUTREACH #### [facility] [address] [phone] [place] Platelet mean volume [Entiti c volume] in Blood by Automated countOrdered By: OUTREACH COMMUNITY on 08-11-2023 Platelet mean volume (Bld) [Entitic vol] 6.7 fL Normal 6.3-10.7 [facility] Comment on above: Result Comment: PERF ORMED BY: [place] [address] PATHOLOGIST SERVICE ORDER DISPATCHER DAJA ALVAREZ M.D. Performed By: #### O UTREACH LIPID, OUTREACH CMP, OUTREACH VITD, CBCNOOUTREACH #### [facility] [address] [place] [address] [place] Platelets [#/volume] in Bloo d by Automated countOrdered By: [facility] on 08-11-2023 Platelets (Bld) [#/Vol] 501 10*3/uL High 150-450 [facility] Comment on above: Performed By: #### O UTREACH LIPID, OUTREACH CMP, OUTREACH VITD, CBCNOOUTREACH #### [facility] [address] [place] [address] [place] Potassium [Moles/volume] in Serum or PlasmaOrdered By: OUTREACH COMMUNITY on 08-11-2023 Potassium [Moles/Vol] 4.5 mmol/L Normal 3.5-5.1 [facility] Comment on above: Performed By: #### O UTREACH LIPID, OUTREACH CMP, OUTREACH VITD, CBCNOOUTREACH #### [facility] [address] [phone] [place] Protein [Mass/volume] in Ser um or PlasmaOrdered By: OUTREACH COMMUNITY on 08-11-2023 Protein [Mass/Vol] 6.4 g/dL Normal 6.4-8.9 [facility] Comment on above: Performed By: #### O UTREACH LIPID, OUTREACH CMP, OUTREACH VITD, CBCNOOUTREACH #### [facility] [address] [place] [address] [place] Serum or plasma anion gap de terminationOrdered By: OUTREACH COMMUNITY on 11-04-2023 Anion gap [Moles/Vol] 7.7 mmol/L Normal 6.0-15.0 [facility] Comment on above: Performed By: #### O UTREACH LIPID, OUTREACH CMP, OUTREACH VITD, CBCNOOUTREACH #### [facility] [address] Serum or plasma high density lipoprotein (HDL) cholesterol measurementOrdered By: OUTREACH COMMUNITY on 08-11-2023 Cholesterol in HDL [Mass/Vol] 49 mg/dL Normal 23-92 [facility] Comment on above: HDL CHOL ATP-III CLA SSIFICATION Cardiovascular RiskHDL > or equal to 60 mg/dL LOWHDL < 40 mg/dL HIGH Result Comment: HDL CHOL ATP-III CLASSIFICATION Cardiovascular Risk HDL > or equal to 60 mg/dL LOW HDL < 40 mg/dL HIGH Performed By: #### O UTREACH LIPID, OUTREACH CMP, OUTREACH VITD, CBCNOOUTREACH #### [facility] [address] Serum or plasma total choles terol/high density lipoprotein (HDL) cholesterol mass ratOrdered By: OUTREACH COMMUNITY on 08-11-2023 Cholesterol.total/Choles terol in HDL [Mass ratio] 2.5 {ratio} Normal <5.0 [facility] Comment on above: Performed By: #### O UTREACH LIPID, OUTREACH CMP, OUTREACH VITD, CBCNOOUTREACH #### [facility] [address] [place] [address] [place] Sodium [Moles/volume] in Ser um or PlasmaOrdered By: OUTREACH COMMUNITY on 08-11-2023 Sodium [Moles/Vol] 136 mmol/L Normal 136-145 [facility] Comment on above: Performed By: #### O UTREACH LIPID, OUTREACH CMP, OUTREACH VITD, CBCNOOUTREACH #### [facility] [address] Triglyceride [Mass/volume] i n Serum or PlasmaOrdered By: OUTREACH COMMUNITY on 08-11-2023 Triglyceride [Mass/Vol] 66 mg/dL 0-149 [facility] Comment on above: TRIG ATP III CLASSIF ICATIONTRIG less than 150 mg/dL NormalTRIG 150-199 mg/dL Borderline highTRIG 200-500 mg/dL High TRIG greater than 500 mg/dL Very highStandard traceable to the Center for Disease Conrtrol and Prevention (CDC) test method. Urea nitrogen [Mass/volume] in Serum or PlasmaOrdered By: OUTREACH COMMUNITY on 08-11-2023 Urea nitrogen [Mass/Vol] 21 mg/dL Normal 7-25 [facility] Comment on above: Performed By: #### [facility] L[facility], OUTREACH CMP, OUTREACH VITD, CBCNOOUTREACH #### [facility] [address] Vitamin D+Metabolites [Mass/ volume] in Serum or PlasmaOrdered By: OUTREACH COMMUNITY on 08-11-2023 Vitamin D+Metabolites [Mass/Vol] 41.7 ng/mL 30-100 [facility] Comment on above: VITAMIN D STATUS 25( [place])VITAMIN D RANGE (ng/mL) Deficient <20 Insufficient 20 to <30Sufficient 30 to 100Reference: Neyda MF,Angela LIAO, Ravin FONSECA, et al. Evaluation,treatment, and prevention of vitamin D deficiency; an Endocrine Society clinical practice guideline. JCEM. 2010; 96(7):1911-30. Alanine aminotransferase [En zymatic activity/volume] in Serum or PlasmaOrdered By: OUTREACH COMMUNITY on 05-26-2023 ALT [Catalytic activity/Vol] 9 U/L 7-52 [facility] Albumin [Mass/volume] in Ser um or Plasma by Bromocresol green (BCG) dye binding methoOrdered By: OUTREACH COMMUNITY on 05-26-2023 Albumin BCG dye [Mass/Vol] 4.2 g/dL 3.5-5.7 [facility] Alkaline phosphatase [Enzyma tic activity/volume] in Serum or PlasmaOrdered By: OUTREACH COMMUNITY on 05-26-2023 ALP [Catalytic activity/Vol] 55 U/L 34-104 [facility] Aspartate aminotransferase [ Enzymatic activity/volume] in Serum or PlasmaOrdered By: OUTREACH COMMUNITY on 05-26-2023 AST [Catalytic activity/Vol] 13 U/L 13-39 [facility] Bilirubin.total [Mass/volume ] in Serum or PlasmaOrdered By: OUTREACH COMMUNITY on 05-26-2023 Bilirubin [Mass/Vol] 0.5 mg/dL 0.3-1.[address] [facility] CBC Without Differentialon 0 05-26-2023 Erythrocyte distribution width (RBC) [Ratio] 18.5 % High 11.9-15.3 [facility] Comment on above: Performed By: #### O UTREACH CMP, OUTREACH VITD, OUTREACH TSH, CBCNOOUTREACH, OUTREACH LIPID, OUTREACH GLYCO #### [address] Hematocrit (Bld) [Volume fraction] 32.7 % Low 34.0-46.4 [facility] Comment on above: Performed By: #### O UTREACH CMP, OUTREACH VITD, OUTREACH TSH, CBCNOOUTREACH, OUTREACH LIPID, OUTREACH GLYCO #### [address] Hemoglobin (Bld) [Mass/Vol] 10.2 g/dL Low 11.8-15.4 [facility] Comment on above: Performed By: #### O UTREACH CMP, OUTREACH VITD, OUTREACH TSH, CBCNOOUTREACH, OUTREACH LIPID, OUTREACH GLYCO #### [address] MCH (RBC) [Entitic mass] 22.0 pg Low 24.7-34.3 [facility] Comment on above: Performed By: #### O UTREACH CMP, OUTREACH VITD, OUTREACH TSH, CBCNOOUTREACH, OUTREACH LIPID, OUTREACH GLYCO #### [address] MCV (RBC) [Entitic vol] 70.9 fL Low 80-100 [facility] Comment on above: Performed By: #### O UTREACH CMP, OUTREACH VITD, OUTREACH TSH, CBCNOOUTREACH, OUTREACH LIPID, OUTREACH GLYCO #### [address] Mean Corpuscular HGB Conc 31.1 g/dL Low 32.0-35.0 [facility] Comment on above: Performed By: #### O UTREACH CMP, OUTREACH VITD, OUTREACH TSH, CBCNOOUTREACH, OUTREACH LIPID, OUTREACH GLYCO #### [address] Platelet mean volume (Bld) [Entitic vol] 6.7 fL Normal 6.3-10.7 [facility] Comment on above: Result Comment: PERF ORMED BY: [place] [address] PATHOLOGIST SERVICE ORDER DISPATCHER DAJA ALVAREZ M.D. Performed By: #### O UTREACH CMP, OUTREACH VITD, OUTREACH TSH, CBCNOOUTREACH, OUTREACH LIPID, OUTREACH GLYCO #### [address] Platelets (Bld) [#/Vol] 503 10*3/uL High 150-450 [facility] Comment on above: Performed By: #### O UTREACH CMP, OUTREACH VITD, OUTREACH TSH, CBCNOOUTREACH, OUTREACH LIPID, OUTREACH GLYCO #### [address] RBC (Bld) [#/Vol] 4.61 10*6/uL Normal 3.60-5.00 [facility] Comment on above: Performed By: #### O UTREACH CMP, OUTREACH VITD, OUTREACH TSH, CBCNOOUTREACH, OUTREACH LIPID, OUTREACH GLYCO #### [address] WBC (Bld) [#/Vol] 5.9 10*3/uL Normal 3.8-11.6 [facility] Comment on above: Performed By: #### O UTREACH CMP, OUTREACH VITD, OUTREACH TSH, CBCNOOUTREACH, OUTREACH LIPID, OUTREACH GLYCO #### [place] [address] [place] CMP Outreachon 05-26-2023 Albumin [Mass/Vol] 4.2 g/dL Normal 3.5-5.7 [facility] Comment on above: Performed By: #### O UTREACH CMP, OUTREACH VITD, OUTREACH TSH, CBCNOOUTREACH, OUTREACH LIPID, OUTREACH GLYCO #### [facility] [address] [place] [address] [place] ALP [Catalytic activity/Vol] 55 U/L Normal 34-104 [facility] Comment on above: Performed By: #### O UTREACH CMP, OUTREACH VITD, OUTREACH TSH, CBCNOOUTREACH, OUTREACH LIPID, OUTREACH GLYCO #### [facility] [address] [place], [place] [id number] [place] ALT [Catalytic activity/Vol] 9 U/L Normal 7-52 [facility] Comment on above: Performed By: #### O UTREACH CMP, OUTREACH VITD, OUTREACH TSH, CBCNOOUTREACH, OUTREACH LIPID, OUTREACH GLYCO #### [facility] [address] [place] [address] Anion gap [Moles/Vol] 11.4 mmol/L Normal 6.0-15.0 [facility] Comment on above: Performed By: #### O UTREACH CMP, OUTREACH VITD, OUTREACH TSH, CBCNOOUTREACH, OUTREACH LIPID, OUTREACH GLYCO #### [place] [address] [place] AST [Catalytic activity/Vol] 13 U/L Normal 13-39 [facility] Comment on above: Performed By: #### O UTREACH CMP, OUTREACH VITD, OUTREACH TSH, CBCNOOUTREACH, OUTREACH LIPID, OUTREACH GLYCO #### [facility] [address] [place] [address] [place] Bilirubin [Mass/Vol] 0.5 mg/dL Normal 0.3-1.0 [facility] Comment on above: Performed By: #### O UTREACH CMP, OUTREACH VITD, OUTREACH TSH, CBCNOOUTREACH, OUTREACH LIPID, OUTREACH GLYCO #### [facility] [address] [place] [address] [place] Calcium [Mass/Vol] 9.5 mg/dL Normal 8.6-10.3 [facility] Comment on above: Performed By: #### O UTREACH CMP, OUTREACH VITD, OUTREACH TSH, CBCNOOUTREACH, OUTREACH LIPID, OUTREACH GLYCO #### [facility] [address] [place] [address] [place] Chloride [Moles/Vol] 103 mmol/L Normal 98-107 [facility] Comment on above: Performed By: #### O UTREACH CMP, OUTREACH VITD, OUTREACH TSH, CBCNOOUTREACH, OUTREACH LIPID, OUTREACH GLYCO #### [facility] [address] [id number] [place] CO2 [Moles/Vol] 27.0 mmol/L Normal 21.0-31.0 [facility] Comment on above: Performed By: #### O UTREACH CMP, OUTREACH VITD, OUTREACH TSH, CBCNOOUTREACH, OUTREACH LIPID, OUTREACH GLYCO #### [facility] [address] [place] [address] [place] Creatinine [Mass/Vol] 0.81 mg/dL Normal 0.60-1.20 [facility] Comment on above: Performed By: #### O UTREACH CMP, OUTREACH VITD, OUTREACH TSH, CBCNOOUTREACH, OUTREACH LIPID, OUTREACH GLYCO #### [place] [address] [place] GFR/1.73 sq M.predicted MDRD (S/P/Bld) [Vol rate/Area] mL/min/{1.73_m2} Normal [facility] Comment on above: Performed By: #### O UTREACH CMP, OUTREACH VITD, OUTREACH TSH, CBCNOOUTREACH, OUTREACH LIPID, OUTREACH GLYCO #### [place] [address] [place] Glucose [Mass/Vol] 95 mg/dL Normal 70-100 [facility] Comment on above: Result Comment: [facility] Glucose Reference Range is dependent on time and content of last meal. Glucose of more than 200 mg/dL in a nonstressed, ambulatory subject supports the diagnosis of Diabetes Mellitus. ADA recommended reference range Performed By: #### O UTREACH CMP, OUTREACH VITD, OUTREACH TSH, CBCNOOUTREACH, OUTREACH LIPID, OUTREACH GLYCO #### [facility] [address] [place] [address] [place] Potassium [Moles/Vol] 4.4 mmol/L Normal 3.5-5.1 [facility] Comment on above: Performed By: #### O UTREACH CMP, OUTREACH VITD, OUTREACH TSH, CBCNOOUTREACH, OUTREACH LIPID, OUTREACH GLYCO #### [facility] [address] [place] [address] [place] Protein [Mass/Vol] 7.1 g/dL Normal 6.4-8.9 [facility] Comment on above: Performed By: #### O UTREACH CMP, OUTREACH VITD, OUTREACH TSH, CBCNOOUTREACH, OUTREACH LIPID, OUTREACH GLYCO #### [facility] [address] Sodium [Moles/Vol] 137 mmol/L Normal 136-145 [facility] Comment on above: Performed By: #### O UTREACH CMP, OUTREACH VITD, OUTREACH TSH, CBCNOOUTREACH, OUTREACH LIPID, OUTREACH GLYCO #### [facility] [address] [place] [address] [place] Urea nitrogen [Mass/Vol] 17 mg/dL Normal 7-25 [facility] Comment on above: Performed By: #### O UTREACH CMP, OUTREACH VITD, OUTREACH TSH, CBCNOOUTREACH, OUTREACH LIPID, OUTREACH GLYCO #### [facility] [address] Calcium [Mass/volume] in Ser um or PlasmaOrdered By: OUTREACH COMMUNITY on 05-26-2023 Calcium [Mass/Vol] 9.5 mg/dL 8.6-10.3 [facility] Carbon dioxide, total [Moles /volume] in Serum or PlasmaOrdered By: OUTREACH COMMUNITY on 05-26-2023 CO2 [Moles/Vol] 27.0 mmol/L 21.0-31.0 [facility] Chloride [Moles/volume] in S pablo or PlasmaOrdered By: OUTREACH COMMUNITY on 05-26-2023 Chloride [Moles/Vol] 103 mmol/L 98-[address] [facility] Cholesterol [Mass/volume] in Serum or PlasmaOrdered By: OUTREACH COMMUNITY on 05-26-2023 Cholesterol [Mass/Vol] 134 mg/dL 140-200 [facility] Comment on above: Chol less than 200 m g/dl low riskChol 201-239 mg/dl borderline riskChol 240 mg/dl and greater high risk Cholesterol in LDL Calc [Mas s/Vol]Ordered By: [facility] on 05-26-2023 Cholesterol in LDL [Mass/Vol] 63 mg/dL 0-100 [facility] Comment on above: LDL ATP III CLASSIFI CATIONLDL less than 100 mg/dL OptimalLDL 100-129 mg/dL Near or above optimalLDL 130-159 mg/dL Borderline highLDL 160-189 mg/dL HighLDL greater than 189 mg/dL Very high Cholesterol in VLDL Calc [Ma ss/Vol]Ordered By: [facility] on 05-26-2023 Cholesterol in VLDL [Mass/Vol] 19 mg/dL [facility] Creatinine [Mass/volume] in Serum or PlasmaOrdered By: [facility] on 05-26-2023 Creatinine [Mass/Vol] 0.81 mg/dL 0.60-1.20 [facility] Erythrocyte distribution wid th Auto (RBC) [Ratio]Ordered By: [facility] on 05-26-2023 Erythrocyte distribution width (RBC) [Ratio] 18.5 % 11.9-15.3 [facility] Glucose [Mass/volume] in Ser um or PlasmaOrdered By: [facility] on 05-26-2023 Glucose [Mass/Vol] 95 mg/dL 70-100 [facility] Comment on above: ADA recommended refe rence rangeRandom Glucose Reference Range is dependent on time and content of last meal. Glucose of more than 200 mg/dL in a nonstressed, ambulatory subject supports the diagnosis of Diabetes Mellitus. Glucose mean value [Mass/vol ume] in Blood Estimated from glycated hemoglobinOrdered By: [facility] on 05-26-2023 Average glucose Estimated from glycated hemoglobin (Bld) [Mass/Vol] 120 mg/dL [facility] Hematocrit Auto (Bld) [Volum e fraction]Ordered By: [facility] on 05-26-2023 Hematocrit (Bld) [Volume fraction] 32.7 % 34.0-46.4 [facility] Hemoglobin [Mass/volume] in BloodOrdered By: [facility] on 05-26-2023 Hemoglobin (Bld) [Mass/Vol] 10.2 g/dL 11.8-15.4 [facility] - Hematology and Cell countsOrdered By: [facility] on 05-26-2023 HbA1c (Bld) [Mass fraction] 5.8 % 4.3-5.6 [facility] Comment on above: Increased risk for d iabetes: 5.7 - 6.4diabetes: >6.4glycemic control for adults with diabetes: <7.0 Leukocytes [#/volume] correc freddie for nucleated erythrocytes in Blood by Automated counOrdered By: [facility] on 05-26-2023 WBC corrected for nucl RBC Auto (Bld) [#/Vol] 5.9 10*3/uL 3.8-11.6 [facility] Lipid Profile [facility] Cholesterol [Mass/Vol] 134 mg/dL Low 140-200 [facility] Comment on above: Result Comment: Chol less than 200 mg/dl low risk Chol 201-239 mg/dl borderline risk Chol 240 mg/dl and greater high risk Performed By: #### O UTREACH CMP, OUTREACH VITD, OUTREACH TSH, CBCNOOUTREACH, OUTREACH LIPID, OUTREACH GLYCO #### [facility] [address] Cholesterol in HDL [Mass/Vol] 52 mg/dL Normal 23-92 [facility] Comment on above: Result Comment: HDL CHOL ATP-III CLASSIFICATION Cardiovascular Risk HDL > or equal to 60 mg/dL LOW HDL < 40 mg/dL HIGH Performed By: #### O UTREACH CMP, OUTREACH VITD, OUTREACH TSH, CBCNOOUTREACH, OUTREACH LIPID, OUTREACH GLYCO #### [facility] [address] [id number] [place] Cholesterol.total/Choles terol in HDL [Mass ratio] 2.6 {ratio} Normal <5.0 [facility] Comment on above: Performed By: #### O UTREACH CMP, OUTREACH VITD, OUTREACH TSH, CBCNOOUTREACH, OUTREACH LIPID, OUTREACH GLYCO #### [facility] [address] [id number] [place] LDL Cholesterol,Calculated 63 mg/dL Normal 0-100 [facility] Comment on above: Result Comment: LDL ATP III CLASSIFICATION LDL less than 100 mg/dL Optimal LDL 100-129 mg/dL Near or above optimal LDL 130-159 mg/dL Borderline high LDL 160-189 mg/dL High LDL greater than 189 mg/dL Very high Performed By: #### O UTREACH CMP, OUTREACH VITD, OUTREACH TSH, CBCNOOUTREACH, OUTREACH LIPID, OUTREACH GLYCO #### [facility] [address] Triglyceride w/Reflex 95 mg/dL Normal 0-149 [facility] Comment on above: Result Comment: TRIG ATP III CLASSIFICATION TRIG less than 150 mg/dL Normal TRIG 150-199 mg/dL Borderline high TRIG 200-500 mg/dL High TRIG greater than 500 mg/dL Very high Standard traceable to the Center for Disease Conrtrol and Prevention (CDC) test method. Performed By: #### O UTREACH CMP, OUTREACH VITD, OUTREACH TSH, CBCNOOUTREACH, OUTREACH LIPID, OUTREACH GLYCO #### [facility] [address] VLDL CHOLESTEROL 19 mg/dL Normal [facility] Comment on above: Performed By: #### O UTREACH CMP, OUTREACH VITD, OUTREACH TSH, CBCNOOUTREACH, OUTREACH LIPID, OUTREACH GLYCO #### [facility] [address] MCH Auto (RBC) [Entitic mass ]Ordered By: OUTREACH COMMUNITY on 05-26-2023 MCH (RBC) [Entitic mass] 22.0 pg 24.7-34.3 [facility] MCHC Auto (RBC) [Mass/Vol]Or dered By: OUTREACH COMMUNITY on 05-26-2023 MCHC (RBC) [Mass/Vol] 31.1 g/dL 32.0-35.0 [facility] MCV Auto (RBC) [Entitic vol] Ordered By: OUTREACH COMMUNITY on 05-26-2023 MCV (RBC) [Entitic vol] 70.9 fL 80-100 F [facility] No Panel InformationOrdered By: OUTREACH COMMUNITY on 05-26-2023 Estimated GFR (CKD-EPI) > 60.0 mL/Min [facility] Creatinine Clearance (Chem N/A [facility] Glycoon 05-26-2023 Glucose [Mass/Vol] 120 mg/dL Normal [facility] Comment on above: Result Comment: PERF ORMED BY: [place] [address] PATHOLOGIST SERVICE ORDER DISPATCHER DAJA ALVAREZ M.D. Performed By: #### O UTREACH CMP, OUTREACH VITD, OUTREACH TSH, CBCNOOUTREACH, OUTREACH LIPID, OUTREACH GLYCO #### [facility] [address] [place] [address] [place] HbA1c (Bld) [Mass fraction] 5.8 % High 4.3-5.6 [facility] Comment on above: Result Comment: Incr eased risk for diabetes: 5.7 - 6.4 diabetes: >6.4 glycemic control for adults with diabetes: <7.0 Performed By: #### O UTREACH CMP, OUTREACH VITD, OUTREACH TSH, CBCNOOUTREACH, OUTREACH LIPID, OUTREACH GLYCO #### [facility] [address] [place] [address] [place] Outreach VitD 25on 3 Outreach VitD 25 27.7 ng/mL Low 30-100 [facility] Comment on above: Result Comment: MEMO MIN D STATUS 25(OH)VITAMIN D RANGE (ng/mL) Deficient <20 Insufficient 20 to <30 Sufficient 30 to 100 Reference: Neyda MF,Angela NC, Ravin FONSECA, et al. Evaluation,treatment, and prevention of vitamin D deficiency; an Endocrine Society clinical practice guideline. JCEM. 2010; 96(7):1911-30. PERFORMED BY: [place] [address] PATHOLOGIST SERVICE ORDER DISPATCHER DAJA ALVAREZ M.D. Performed By: #### O UTREACH CMP, OUTREACH VITD, OUTREACH TSH, CBCNOOUTREACH, OUTREACH LIPID, OUTREACH GLYCO #### [facility] [address] [place] [id number] [place] Platelet mean volume Auto (B ld) [Entitic vol]Ordered By: [facility] COMMUNITY on 05-26-2023 Platelet mean volume (Bld) [Entitic vol] 6.7 fL 6.3-10.7 [facility] Platelets Auto (Bld) [#/Vol] Ordered By: OUTREACH COMMUNITY on 05-26-2023 Platelets (Bld) [#/Vol] 503 10*3/uL 150-450 [facility] Potassium [Moles/volume] in Serum or PlasmaOrdered By: OUTREACH [facility] on 05-26-2023 Potassium [Moles/Vol] 4.4 mmol/L 3.5-5.1 [facility] Protein [Mass/volume] in Ser um or PlasmaOrdered By: OUTREACH COMMUNITY on 05-26-2023 Protein [Mass/Vol] 7.1 g/dL 6.4-8.9 [facility] RBC Auto (Bld) [#/Vol]Ordere d By: OUTREACH [facility] on 05-26-2023 RBC (Bld) [#/Vol] 4.61 10*6/uL 3.60-5.00 [facility] Serum or plasma anion gap de terminationOrdered By: [facility] on 05-26-2023 Anion gap [Moles/Vol] 11.4 mmol/L 6.0-15.0 [facility] Serum or plasma high density lipoprotein (HDL) cholesterol measurementOrdered By: OUTREACH COMMUNITY on 05-26-2023 Cholesterol in HDL [Mass/Vol] 52 mg/dL 23-92 [facility] Comment on above: HDL CHOL ATP-III CLA SSIFICATION Cardiovascular RiskHDL > or equal to 60 mg/dL LOWHDL < 40 mg/dL HIGH Serum or plasma total choles terol/high density lipoprotein (HDL) cholesterol mass ratOrdered By: [facility] on 05-26-2023 Cholesterol.total/Choles terol in HDL [Mass ratio] 2.6 {ratio} <5.0 [facility] Sodium [Moles/volume] in Ser um or PlasmaOrdered By: OUTREACH COMMUNITY on 05-26-2023 Sodium [Moles/Vol] 137 mmol/L 136-145 [facility] Thyroid Stimulating Hormoneo n 05-26-2023 TSH Qn 5.53 m[IU]/L High 0.45-5.33 [facility] Comment on above: Performed By: #### O UTREA CMP, OUTREACH VITD, OUTREACH TSH, CBCNOOUTREACH, OUTREACH LIPID, OUTREACH GLYCO #### [facility] [address] [id number] [place] Thyrotropin [Units/volume] i n Serum or PlasmaOrdered By: OUTREACH COMMUNITY on 05-26-2023 TSH Qn 5.53 m[IU]/L 0.45-5.33 [facility] Triglyceride [Mass/volume] i n Serum or PlasmaOrdered By: OUTREACH COMMUNITY on 05-26-2023 Triglyceride [Mass/Vol] 95 mg/dL 0-149 F [facility] Comment on above: TRIG ATP III CLASSIF ICATIONTRIG less than 150 mg/dL NormalTRIG 150-199 mg/dL Borderline highTRIG 200-500 mg/dL High TRIG greater than 500 mg/dL Very highStandard traceable to the Center for Disease Conrtrol and Prevention (CDC) test method. Urea nitrogen [Mass/volume] in Serum or PlasmaOrdered By: OUTREACH COMMUNITY on 05-26-2023 Urea nitrogen [Mass/Vol] 17 mg/dL 7-25 [facility] Vitamin D+Metabolites [Mass/ volume] in Serum or PlasmaOrdered By: OUTREACH COMMUNITY on 05-26-2023 Vitamin D+Metabolites [Mass/Vol] 27.7 ng/mL 30-100 [facility] Comment on above: VITAMIN D STATUS 25( [place])VITAMIN D RANGE (ng/mL) Deficient <20 Insufficient 20 to <30Sufficient 30 to 100Reference: Neyda MF,Angela LIAO, Ravin FONSECA, et al. Evaluation,treatment, and prevention of vitamin D deficiency; an Endocrine Society clinical practice guideline. JCEM. 2010; 96(7):1911-30. A1C HEMOGLOBINon 05-31-2022 HbA1c (Bld) [Mass fraction] 5.3 % [facility] Other HbA1c (Bld) [Mass fraction]o n 05-31-2022 A1C [facility]OGLOBIN [facility] COVID-19 Positive/NegativeOr dered By: Gonzales Richter on 05-09-2022 SARS-CoV-2 (COVID-19) N gene ELDA+probe Ql (Resp) Negative Negative [facility] Comment on above: Testing for SARS-CoV -2 by RT-PCR This test was developed and its performance characteristics determined by [employer] ([place]) and validated at the [facility]. 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 She has a previous history of an abnormal mammogram with right breast biopsy normal 2014 LMP: Patient's last menstrual period was 08/31/2019 (exact date).; Menopause No: Menstrual history: Periods are: regular q 28-30 days; . Deliveries: PAST SURGICAL HISTORY Procedure Laterality Date - BREAST BIOPSY Right 2014 - CHOLECYSTECTOMY 2004 - OFFICE LEEP 2000 - S TVTO 2009 - TUBAL LIGATION 2009 PAST MEDICAL HISTORY Diagnosis Date - GERD (gastroesophageal reflux disease) - Hypertension History reviewed. No pertinent family history. 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 Referring Provider: NAOMIE BANUELOS [[id number]] Allergies As of Date: 09/10/2019 (No Known Allergies) Date Reviewed: 09/10/2019 Reviewed by: Nadya (Rn) STEPHANIE Andrade - Fully Assessed Reason for Visit: New Patient [172] Primary Visit Diagnosis:Post-void dribbling [N39.43] Other Visit Diagnosis:Cystocele, midline [N81.11] Order(s):UA DIP, URINE (POC) [[id number]] Order #: [id number]. #:[id number] Prescriptions as of 09/10/2019 Sig: BABY ASPIRIN [...] Of Date: 09/10/2019 (None) Encounter Status:Closed by ANTONIO ALPESH on 09/10/19 Normal [facility] PROGRESSon 09-10-2019 PROGRESS HNO ID: [id number] Author: Alpesh Alvarez Service: ? 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 She has a previous history of an abnormal mammogram with right breast biopsy normal 2014 LMP: Patient's last menstrual period was 08/31/2019 (exact date).; Menopause No: Menstrual history: Periods are: regular q 28-30 days; . 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 Alpesh Alvraez MD Exam performed by Dr. Alvarez and [...] Post Wall - Normal support Cervix / [place] - Normal support Vaginal epithelium: WNL No [...] record or letter via US mail. Normal [facility] HEP B SURFACE ABon 9 HEP B SURFACE AB Positive Normal POSITIVE [facility] Comment on above: Result Comment: Clinical Interpretation of Immune Status Negative: patient is considered to be not immune to infection with HBV Intermediate: unable to determine if anti-HBs is present at levels consistent with immunity Positive: anti-HBs detected, patient is considered to be immune to infection with HBV Performed By: #### L MMR #### [place] [address] HEP C ABon 08-19-2019 HEP C AB Negative Normal NEGATIVE [facility] Comment on above: Performed By: #### L MMR #### [place] [address] MEASLES,MUMP,RUBELLAon 08-19 MUMPS ABS, IGG >300.0 Normal Immune >10.9 [facility] Comment on above: Result Comment: (NOT E) Negative <9.0 Equivocal 9.0 - 10.9 Positive >10.9 A positive result generally indicates past exposure to Mumps virus or previous vaccination. PERFORMED AT [facility] Performed By: #### L MMR #### [place] [address] RUBEOLA AB, IGG >300.0 Normal Immune >16.4 [facility] Comment on above: Result Comment: (NOT E) Negative <13.5 Equivocal 13.5 - 16.4 Positive >16.4 Presence of antibodies to Rubeola is presumptive evidence of immunity except when acute infection is suspected. Performed By: #### L MMR #### [place] [address] RUBELLA AB, IGG 2.00 index Normal Immune >0.99 [facility] Comment on above: Result Comment: (NOT E) Non-immune <0.90 Equivocal 0.90 - 0.99 Immune >0.99 Performed By: #### L MMR #### [place] [address] FAX REQUESTon 08-18-2019 FAX TO [facility] Comment on above: Performed By: #### L MMR #### [place] [address] Vital Signs Date Time Vital Sign Value Performing Clinician Facility 06-13-2023 17:30-0400 Body height 149.86 cm Gonzales Rober Other [facility] Other 06-13-2023 17:30-0400 Body mass index (BMI) [Ratio] 29.69 kg/m2 Gonzales Rober Other [facility] Other 06-13-2023 17:30-0400 Body temperature 97.5 [degF] Gonzales Rober Other [facility] Other 06-13-2023 17:30-0400 Body weight 66.68 kg Gonzales Rober Other [facility] Other 06-13-2023 17:30-0400 Diastolic blood pressure 64 mm[Hg] Gonzales Rober Other [facility] Other 06-13-2023 17:30-0400 Respiratory rate 18 /min Gonzales Rober Other [facility] Other 06-13-2023 17:30-0400 SaO2% (BldA) [Mass fraction] 97 % Gonzales Rober Other [facility] Other 06-13-2023 17:30-0400 Systolic blood pressure 112 mm[Hg] Gonzales Rober Other [facility] Other 05-31-2022 18:00-0400 Body height 149.86 cm Gonzales Rober Other [facility] Other 05-31-2022 18:00-0400 Body mass index (BMI) [Ratio] 32.11 kg/m2 Gonzales Rober Other [facility] Other 05-31-2022 18:00-0400 Body temperature 98 [degF] Gonzales Rober Other [facility] Other 05-31-2022 18:00-0400 Body weight 72.12 kg Gonzales Rober Other [facility] Other 05-31-2022 18:00-0400 Diastolic blood pressure 78 mm[Hg] Gonzales Rober Other [facility] Other 05-31-2022 18:00-0400 Respiratory rate 18 /min Gonzales Rober Other [facility] Other 05-31-2022 18:00-0400 SaO2% (BldA) [Mass fraction] 97 % Gonzales Rober Other [facility] Other 05-31-2022 18:00-0400 Systolic blood pressure 116 mm[Hg] Gonzales Rober Other [facility] Other Encounters Encounter Date Encounter Type Care Provider Facility Start: 08-04-2024 ambulatory GONZALES ROBER [facility] Start: 04-17-2024 End: 04-17-2024 ambulatory NAOMIE BANUELOS Not Available Start: 04-03-2024 ambulatory [facility] Start: 02-20-2024 End: 02-20-2024 ambulatory Referral Self Facility:[facility] Start: 01-18-2024 ambulatory GALION NON-PAT [facility] Start: 10-04-2023 End: 10-04-2023 ambulatory Gonzales Rober Other [facility] Other Start: 10-04-2023 Telephone encounter Gonzales Rober [facility] Start: 09-06-2023 End: 09-06-2023 ambulatory Gonzales Rober Other [facility] Other Start: 09-06-2023 Telephone encounter Gonzales Rober [facility] Start: 08-11-2023 End: 08-11-2023 ambulatory Gonzales M. Rober Facility:[facility] Start: 08-11-2023 End: 08-11-2023 ambulatory DO Gonzales M. Rober Work Phone: [facility] Work Phone: Start: 08-11-2023 End: 08-11-2023 Departed Referred DO Gonzales Rober Work Phone: [facility] Work Phone: Start: 07-18-2023 End: 07-18-2023 ambulatory Gonzales Rober Other [facility] Other Start: 07-18-2023 Telephone encounter Gonzales Rober [facility] Start: 07-12-2023 End: 07-12-2023 ambulatory Gonzales Rober Other [facility] Other Start: 07-12-2023 Telephone encounter Gonzales Rober [facility] Start: 06-13-2023 End: 06-13-2023 ambulatory Gonzales Rober Other [facility] Other Start: 06-13-2023 Encounter for genera l adult medical examination without abnormal findings Gonzales Orber [facility] Start: 06-13-2023 Periodic preventive med est patient 40-64yrs Gonzales Rober [facility] Start: 05-31-2023 End: 05-31-2023 ambulatory Gonzales Rober Other [facility] Other Start: 05-31-2023 Telephone encounter Gonzales Rober [facility] Start: 05-26-2023 End: 05-26-2023 ambulatory Gonzales M. Rober Facility:[facility] Start: 05-26-2023 End: 05-26-2023 ambulatory DO Goznales M. Rober Work Phone: [facility] Work Phone: Start: 05-26-2023 End: 05-26-2023 Departed Referred DO Gonzales Rober Work Phone: [facility] Work Phone: Start: 02-14-2023 End: 02-14-2023 ambulatory DO Gonzales M. Rober Work Phone: [facility] Work Phone: Start: 02-14-2023 End: 02-14-2023 Discharged Recurring DO Gonzales Rober Work Phone: [facility] [address] Start: 02-07-2023 Registered Recurring DO Gonzales R uggles Work Phone: [facility] [address] Start: 02-07-2023 End: 02-07-2023 ambulatory DO Gonzales M. Rober Work Phone: [facility] Work Phone: Start: 02-07-2023 End: 02-07-2023 Patient encounter procedure DO Gonzales Rober Work Phone: [facility] Work Phone: Start: 12-25-2022 End: 12-25-2022 ambulatory Gonzales Rober Other [facility] Other Start: 12-25-2022 Telephone encounter Gonzales Rober [facility] Start: 07-18-2022 End: 07-18-2022 ambulatory Gonzales Rober Other [facility] Other Start: 07-18-2022 Telephone encounter Gonzales Rober [facility] Start: 06-27-2022 End: 06-27-2022 ambulatory Gonzales Rober Other [facility] Other Start: 06-27-2022 Telephone encounter Gonzales Rober [facility] Start: 05-31-2022 End: 05-31-2022 ambulatory Gonzales Rober Other [facility] Other Start: 05-31-2022 Encounter for genera l adult medical examination without abnormal findings Gonzales Rober [facility] Start: 05-31-2022 Periodic preventive med est patient 40-64yrs Gonzales Rober [facility] Start: 05-31-2022 Telephone encounter Gonzales Rober [facility] Start: 05-09-2022 End: 05-09-2022 Patient encounter procedure DO Gonzales Rober Work Phone: [facility] Start: 12-28-2020 End: 12-28-2020 Subsequent hospital visit by physician Naomie Banuelos Work Phone: [facility] Comment on above: Arrived Procedures Date Procedure Procedure Detail Performing Clinician Start: 02-07-2023 Screening mammograph y of bilateral breasts DO Gonzales Rober Work Phone: Start: 12-28-2020 ORDERS (OUTSIDE) Taty Banuelos Work Phone: Plan of Treatment Date Care Activity Detail Author Start: 06-08-2020 Influenza vaccination INFLUENZA VACC INE (#1) [facility] Start: 2015 Fasting lipid profile LIPID SCREENIN G [facility] Start: 2015 Screening mammography MAMMOGRA M SCREENING DISCUSSION [facility] Start: 12-09-1996 Screening for malign ant neoplasm of cervix CERVICAL CANCER SCREENING DISCUSSION [facility] Start: 12-09-1994 Third diphtheria, tetanus and acellular pertussis (DTaP) vaccination TDAP (ADULT) [facility] Start: 12-09-1993 Tetanus vaccination TETANUS [facility] Start: 12-09-1988 HIV screening HIV SCREENING DISCUSSI ON [facility] End: 12-28-2020 MG Breast Views MAMMO SCREENING WITH GENEVIEVE BILATERAL Imaging Routine Encounter for screening mammogram for breast cancer 1 Occurrences starting 12/28/2020 until 12/28/2020 [facility] Comment on above: 1 Occurrences starti ng 12/28/2020 until 12/28/2020 MG Breast Views MAMMO SCREENING WITH GENEVIEVE BILATERAL Imaging Routine Encounter for screening mammogram for breast cancer 12/28/2020 7:46 AM EDT [facility] Immunizations Immunization Date Immunization Notes Care Provider Mimi brambila 07-08-2021 influenza, seasonal, injectable Gonzales Rober Other [facility] Other 11-10-2020 SARS-COV-2 (COVID-19 ), Mrna, Lnp-s, Pf, 100 Mcg/ 0.5 Ml Dose MODERNA Naomie [facility] 10-12-2020 SARS-COV-2 (COVID-19 ), Mrna, Lnp-s, Pf, 100 Mcg/ 0.5 Ml Dose MODERNA [facility] 07-13-2020 influenza, seasonal, injectable Gonzales Rober Other [facility] Other 07-08-2018 influenza, seasonal, injectable Gonzales Rober Other [facility] Other 07-17-2017 influenza, seasonal, injectable Gonzales Rober Other [facility] Other Payers Date Payer Category Payer Unknown [id number] 2023 Self-pay [id number] 2022 Unknown [id number] 2020 Unknown [employer] [place] [id number] 2020-Present [id number] 1975 Unknown [id number] Blue Cross Blue Shield [id number] Private Health Insurance [id number] Private Health Insurance [id number] Unknown [facility] [id number] Unknown [id number] Unknown [id number] Unknown [id number] Social History Date Type Detail Facility Tobacco smoking status NHIS Unknown if ever smoked [facility] Start: 1975 Sex Assigned At Not on file A [employer] Sex Assigned At Sex Assigned At Bir th [facility] Other Start: 07-06-2017 Tobacco smoking status NHIS Never smoked tobacco (finding) [facility] Start: 1975 Sex Assigned At Female F [facility] Evaluation note 09-06-2023 Note Date & Type Note Facility 09-06-2023 Evaluation note Encounter Date Diagnosis Assessment Notes Aug, Acquired hypothyroidism (ICD-10 - E03.9) [facility] [employer] Other Evaluation note 07-12-2023 Note Date & Type Note Facility 07-12-2023 Evaluation note Encounter Date Diagnosis Assessment Notes Jul, Fatigue, unspecified type (ICD-10 - R53.83) [facility] Other Evaluation note 06-13-2023 Note Date & [...] She will call with results of the [id number] meds and if need be we will need to pursue the IV replacement. Certainly her number is a modest decrease. Jun, Other No change today...Continue as is...FU PRN/Yearly... [facility] Other Evaluation note 05-31-2023 Note Date & Type Note Facility 05-31-2023 Evaluation note Encounter Date Diagnosis Assessment Notes May, Elevated TSH (ICD-10 - R79.89) [facility] Other Evaluation note 05-31-2022 Note Date & Type Note Facility 05-31-2022 Evaluation note Encounter Date Diagnosis Assessment Notes May, Screening for malignant neoplasm of colon (ICD-10 - Z12.11) May, Encntr for general adult medical exam w/o abnormal findings (ICD-10 - Z00.00) May, Impaired fasting blood sugar (ICD-10 - R73.01) May, Other No change today...Delta nue as is...FU PRN/Yearly... [facility] Other Evaluation note Note Date & Type Note Facility Evaluation note No Information [employer] Other Evaluation note Note Date & Type Note Facility Evaluation note No assessment information katty jose [facility] Work Phone: History general Narrative - [...] History dizziness and left sided numdness 07/2017 [facility] Other Summary Purpose Family History No Family [...] MD [address] [place] [address] [facility] [address] [place] [address] Assessments Diagnosis Encounter for screening mammogram for breast cancer Chief Complaint and Reason for Visit Chief Complaint exposure Chief Complaint Screening Pelvic Floor Chief Complaint complete, A1c, TSH, Vit D Chief Complaint complete, A1c, TSH, Vit D CBC VIT D Additional Source Comments INFORMATION SOURCE (unrecogn ized section and content) DATE CREATED AUTHOR 08/19/2019 [facility] DATE CREATED AUTHOR AUTHOR'S ORGANIZ ATION 09/12/2019 [facility] DATE CREATED AUTHOR AUTHOR'S ORGANIZ ATION 02/24/2024 [facility] [facility] DATE CREATED AUTHOR AUTHOR'S ORGANIZ ATION 04/05/2024 [facility] DATE CREATED AUTHOR AUTHOR'S ORGANIZ ATION 04/23/2024 [facility] EPIC DATE CREATED AUTHOR AUTHOR'S ORGANIZ ATION 08/12/2024 [facility] Reason for Visit (unrecogniz ed section and content) Status Reason Specialty Diagnoses / Procedures Referred By Contact Referred To Contact Closed Mammography Diagnoses Encounter for screening mammogram for breast cancer Procedures MAMMO SCREENING WITH GENEVIEVENaomie Cervantes MD [address] [place] [address] [facility] [address] [place] [address] Care Teams (unrecognized sec tion and content) Team Status: Active Member Role Status Dates Gonzales Richter , DO Primary Care Provider Active Team Status: [...] BE BASED ON THE PRIMARY CLINICAL RECORDS. [employer] provides no warranty or guarantee of the accuracy or completeness of information in this document.
[2024-10-04 08:40] LABS: Alanine Aminotransferase 17 U/L (14-59); Albumin Globulin Ratio 1.1; Albumin Level 3.5 g/dL (3.4-5.0); Alkaline Phosphatase 55 U/L (46-116); Anion Gap 12.6; Aspartate Amino Transferase 14 U/L (15-37); BUN Creatinine Ratio 17.8; Bilirubin Total 0.4 mg/dL (0.2-1.0); Calcium 8.9 mg/dL (8.5-10.1); Carbon Dioxide 25.8 mmol/L (21.0-32.0); Chloride 105 mmol/L (98-107); Estimated GFR (African America >60 (>=60 mL/min/1.73m^2); Estimated GFR (Non-African Ame >60 (>=60 mL/min/1.73m^2); Globulin 3.2 g/dL; Glucose 98 mg/dL (74-106); Potassium 4.4 mmol/L (3.5-5.1); Sodium 139 mmol/L (136-145); Total Protein 6.7 g/dL (6.4-8.2)
[2024-10-04 08:50] LABS: Basophils Absolute Auto 0.1 10^3/uL (0.0-0.1); Eosinophils Absolute Auto 0.1 10^3/uL (0.0-0.7); Eosinophils Percent Auto 1.5 % (0.9-7.0); Hematocrit 38.1 % (36.0-48.0); Hemoglobin 11.8 g/dL (12.0-16.0); Immature Granulocytes Abs Auto 0.01 10^3/uL (0.00-0.03); Immature Granulocytes Pct Auto 0.2 % (0.0-0.5); Lymphocytes Absolute Auto 1.8 10^3/uL (1.2-3.8); Lymphocytes Percent Auto 30.3 % (20.5-60.0); Mean Corpuscular Hemoglobin 25.6 pg (26.7-34.0); Mean Corpuscular Volume 82.6 fL (81.0-99.0); Mean Platelet Volume 8.4 fL (9.5-13.5); Monocytes Absolute Auto 0.5 10^3/uL (0.3-0.8); Monocytes Percent Auto 8.2 % (1.7-12.0); Neutrophils Absolute Auto 3.5 10^3/uL (1.4-6.5); Neutrophils Percent Auto 58.8 % (43.0-75.0); Platelet Count 374 10^3/uL (150-450); Red Blood Count 4.61 10^6/uL (4.20-5.40); White Blood Count 5.9 10^3/uL (4.0-11.0)
== END 2024-10-04 07:59 | disposition home or self-care (01) ==
LOC: LAB 08:00
PROVIDERS: PCP Family Medicine; Visit Provider Family Medicine
DX: Z01.812 Encounter for preprocedural laboratory examination (principal); Z01.818 Encounter for other preprocedural examination
CPT/HCPCS: 36415; 80053; 85025